=== PATIENT | female | born 1975 | race American Indian/Alaskan Native ===

== ENCOUNTER 2020-07-17 04:54 | Emergency (ER) | payer BC ==
[2020-07-17 05:13] VITALS: BP 152/113
--- NOTE | 2020-07-17 09:03 | Emergency Department Report ---
ED Fall HPI - General Chief Complaint: Fall Stated Complaint: rt leg pains Time Seen by Provider: 07/17/20 08:22 Source: patient, EMS Mode of arrival: Ambulatory - History of Present Illness Initial Comments: There is a pleasant 45-year-old female presents the emergency department for evaluation after a ground-level fall today. Patient reports she was walking in the parking lot of her job when she slipped and fell while was raining. She hit the left side of her face, left side of her chest, left hip and left knee. She reports the pain is aggravated with weightbearing. She does report she did lose consciousness for a brief second. She sustained an abrasion to the left side of her cheek. Her tetanus is up-to-date. - Related Data Home Medications Medication Instructions Recorded Confirmed Last Taken AtorvaSTATin [Lipitor] 20 mg PO DAILY 04/13/17 04/13/17 04/12/17 Ferrous Sulfate [Feosol 325 MG tab] 325 mg PO BID 04/13/17 04/13/17 04/12/17 Gabapentin 300 mg PO Q8HR 04/13/17 04/13/17 04/12/17 Insulin Glargine,Hum.rec.anlog 80 units SQ HS 04/13/17 04/13/17 04/11/17 [Lantus Solostar] glipiZIDE [Glucotrol] 10 mg PO BID 04/13/17 04/13/17 04/12/17 Previous Rx's Medication Instructions Recorded Last Taken Type Losartan [Cozaar] 50 mg PO BID #60 tablet 04/15/17 Unknown Rx Moxifloxacin 0.5% [Vigamox] 1 drops OU Q8HR 7 Days bottle 04/15/17 Unknown Rx Allergies Allergy/AdvReac Type Severity Reaction Status Date / Time No Known Allergies Allergy Verified 04/13/17 07:32 ED Review of Systems ROS: Stated complaint: rt leg pains Other details as noted in HPI Comment: All other systems reviewed and negative Constitutional: denies: chills, fever Eyes: denies: eye pain, eye discharge, vision change ENT: denies: ear pain, throat pain Respiratory: denies: cough, shortness of breath, wheezing Cardiovascular: denies: chest pain, palpitations Endocrine: no symptoms reported Gastrointestinal: denies: abdominal pain, nausea, diarrhea Genitourinary: denies: urgency, dysuria, discharge Musculoskeletal: as per HPI, back pain, arthralgia. denies: joint swelling Skin: denies: rash, lesions Neurological: as per HPI, headache. denies: weakness, paresthesias Psychiatric: denies: anxiety, depression Hematological/Lymphatic: denies: easy bleeding, easy bruising ED Past Medical Hx - Past Medical History Previous Medical History?: Yes Hx Hypertension: Yes Hx CVA: Yes Hx Diabetes: Yes Additional medical history: high cholesterol. anemia. neuropathy - Surgical History Past Surgical History?: Yes Additional Surgical History: x2. tubal ligation - Social History Smoking Status: Never Smoker Substance Use Type: None - Medications Home Medications: Home Medications Medication Instructions Recorded Confirmed Last Taken Type AtorvaSTATin [Lipitor] 20 mg PO DAILY 04/13/17 04/13/17 04/12/17 History Ferrous Sulfate [Feosol 325 MG tab] 325 mg PO BID 04/13/17 04/13/17 04/12/17 History Gabapentin 300 mg PO Q8HR 04/13/17 04/13/17 04/12/17 History Insulin Glargine,Hum.rec.anlog 80 units SQ HS 04/13/17 04/13/17 04/11/17 History [Lantus Solostar] glipiZIDE [Glucotrol] 10 mg PO BID 04/13/17 04/13/17 04/12/17 History Losartan [Cozaar] 50 mg PO BID #60 tablet 04/15/17 Unknown Rx Moxifloxacin 0.5% [Vigamox] 1 drops OU Q8HR 7 Days bottle 04/15/17 Unknown Rx ED Physical Exam - General Limitations: No Limitations General appearance: alert, in no apparent distress - Head Head exam: Present: normocephalic, other (There is an abrasion over the left zygomatic arch, with mild tenderness palpation, negative hudson sign, negative raccoon eyes, no CSF otorrhea or rhinorrhea. No hematoma or skull depressions.) - Eye Eye exam: Present: normal appearance, PERRL Pupils: Present: normal accommodation - ENT ENT exam: Present: normal exam, normal orophraynx, mucous membranes moist - Neck Neck exam: Present: normal inspection, full ROM. Absent: tenderness (No midline tenderness of cervical spine, normal active range of motion without pain) - Respiratory Respiratory exam: Present: normal lung sounds bilaterally, chest wall tenderness (Tenderness to the left upper chest wall, no deformity, no ecchymosis). Absent: respiratory distress, wheezes, rales, rhonchi, stridor - Cardiovascular Cardiovascular Exam: Present: regular rate, normal rhythm, normal heart sounds. Absent: systolic murmur, diastolic murmur, rubs, gallop - GI/Abdominal GI/Abdominal exam: Present: soft, normal bowel sounds. Absent: distended, tenderness, guarding, rebound, rigid - Extremities Exam Extremities exam: Present: normal inspection, full ROM, tenderness (Tenderness to palpation to the left proximal hip, pelvis is stable, tenderness palpation to the left knee), normal capillary refill. Absent: calf tenderness - Back Exam Back exam: Present: normal inspection, tenderness (Tenderness palpation of the lumbar spine and thoracic spine.), paraspinal tenderness, vertebral tenderness. Absent: full ROM, CVA tenderness (R), CVA tenderness (L) - Neurological Exam Neurological exam: Present: alert, oriented X3, CN II-XII intact, normal gait - Psychiatric Psychiatric exam: Present: normal affect, normal mood - Skin Skin exam: Present: warm, dry, intact, normal color. Absent: rash ED Course Vital Signs 07/17/20 05:01 Temperature 97.9 F Pulse Rate 94 H Respiratory 17 Rate Blood Pressure 152/113 O2 Sat by Pulse 100 Oximetry ED Medical Decision Making - Radiology Data Radiology results: report reviewed X-ray of the left knee, thoracic spine, lumbar spine, pelvis, chest and CT of the head all returned unremarkable with no acute findings per radiology. - Medical Decision Making Patient nontoxic in no acute distress. Vital signs are stable. She is moving all her extremities well. There is no bruising, erythema or edema. X-rays were ordered of the areas of pain and were fortunately negative. CT of the head was ordered due to her reported loss of consciousness and was fortunately negative. She was given concussion return precautions for any changing or worsening symptoms. She is up-to-date on her tetanus and a small abrasion on her left side of her face did not require any closure. She was instructed to return to the emerge part immediately felt any change or worsening symptoms. She verbalized understanding the diagnosis, treatment plan and follow-up instructions and all of her questions were answered. - Differential Diagnosis Fracture, strain, sprain Critical care attestation.: If time is entered above; I have spent that time in minutes in the direct care of this critically ill patient, excluding procedure time. ED Disposition Clinical Impression: Contusion of face Qualifiers: Encounter type: initial encounter Qualified Code(s): S00.83XA - Contusion of other part of head, initial encounter Contusion of left knee Qualifiers: Encounter type: initial encounter Qualified Code(s): S80.02XA - Contusion of left knee, initial encounter Contusion of left hip Qualifiers: Encounter type: initial encounter Qualified Code(s): S70.02XA - Contusion of left hip, initial encounter Chest wall contusion Qualifiers: Encounter type: initial encounter Laterality: left Qualified Code(s): S20.212A - Contusion of left front wall of thorax, initial encounter Acute thoracic myofascial strain Qualifiers: Encounter type: initial encounter Qualified Code(s): S29.019A - Strain of muscle and tendon of unspecified wall of thorax, initial encounter Acute lumbar myofascial strain Qualifiers: Encounter type: initial encounter Qualified Code(s): S39.012A - Strain of muscle, fascia and tendon of lower back, initial encounter Closed head injury Qualifiers: Encounter type: initial encounter Qualified Code(s): S09.90XA - Unspecified injury of head, initial encounter Disposition: DC-01 TO HOME OR SELFCARE Is pt being admited?: No Condition: Stable Referrals: PRIMARY MD LUIS [Primary Care Provider] - 3-5 Days TALAT SIGALA MD [Staff Physician] - 3-5 Days Time of Disposition: 14:07
--- NOTE | 2020-07-17 09:26 | Cat Scan Report ---
CT head/brain wo con INDICATION / CLINICAL INFORMATION: 45 years Female; pain, fall. TECHNIQUE: Routine CT head without contrast. All CT scans at this location are performed using CT dos e reduction for ALARA by means of automated exposure control. COMPARISON: None. FINDINGS: BRAIN / INTRACRANIAL CONTENTS: The brain appears to demonstrate appropriate attenuation. The ventricu lar system is within normal limits in size and configuration. There is no CT evidence of acute intrac ranial hemorrhage or significant mass effect. ORBITS: No significant abnormality of visualized orbits. SINUSES / MASTOIDS: No significant abnormality in the visualized paranasal sinuses or mastoid air jose ramon ls. CRANIOCERVICAL JUNCTION: No significant abnormality. ADDITIONAL FINDINGS: None. IMPRESSION: 1. There is no CT evidence of acute intracranial process. Signer Name: Can Tavarez MD Signed: 07/17/2020 9:22 AM Workstation Name: [id number]
--- NOTE | 2020-07-17 09:37 | XRay Report ---
LEFT KNEE 2 VIEWS INDICATION: Left knee pain after fall. COMPARISON: No relevant prior imaging study available. FINDINGS: No acute fracture, dislocation, or joint effusion. IMPRESSION: 1. No acute findings. THORACIC SPINE AP AND LATERAL VIEWS INDICATION: Back pain after fall. COMPARISON: No relevant prior imaging study available. FINDINGS: No acute fracture or subluxation is seen. No significant discogenic degenerative changes. IMPRESSION: 1. No acute findings. Signer Name: Marlon Nation MD Signed: 07/17/2020 9:33 AM Workstation Name: [id number]
--- NOTE | 2020-07-17 09:40 | XRay Report ---
LUMBAR SPINE AP AND LATERAL VIEWS INDICATION: Low back pain after fall. COMPARISON: No relevant prior imaging study available. FINDINGS: Acute fracture or subluxation. There is no SI joint diastases. IMPRESSION: 1. No acute findings. AP PELVIS INDICATION: Pelvic pain after fall. COMPARISON: No relevant prior imaging study available. FINDINGS: No acute, displaced fracture or dislocation is seen. Constipation is noted. IMPRESSION: 1. No acute findings. CHEST PA AND LATERAL VIEWS INDICATION: pain, fall. COMPARISON: None. FINDINGS: Support devices: None. Heart: Within normal limits. Lungs/Pleura: No acute pulmonary or pleural findings. IMPRESSION: 1. No acute findings. Signer Name: Marlon Nation MD Signed: 07/17/2020 9:36 AM Workstation Name: [id number]
== END 2020-07-17 14:05 | disposition home or self-care (01) ==
LOC: ED 04:54
DX: S09.90XA Unspecified injury of head, initial encounter (principal); S39.012A Strain of muscle, fascia and tendon of lower back, initial encounter; S29.012A Strain of muscle and tendon of back wall of thorax, initial encounter; S20.219A Contusion of unspecified front wall of thorax, initial encounter; S70.02XA Contusion of left hip, initial encounter; S80.02XA Contusion of left knee, initial encounter; S00.83XA Contusion of other part of head, initial encounter; I10 Essential (primary) hypertension; E11.9 Type 2 diabetes mellitus without complications; Z86.73 Personal history of transient ischemic attack (TIA), and cerebral infarction without residual deficits; Z98.51 Tubal ligation status; Z98.890 Other specified postprocedural states; Z79.4 Long term (current) use of insulin; Z79.899 Other long term (current) drug therapy; W01.0XXA Fall on same level from slipping, tripping and stumbling without subsequent striking against object, initial encounter; Y93.89 Activity, other specified; Y92.481 Parking lot as the place of occurrence of the external cause; Y99.8 Other external cause status
CPT/HCPCS: 70450; 71046; 72070; 72100; 72170; 82962

== ENCOUNTER 2020-07-29 16:02 | Emergency (ER) | payer BC ==
--- NOTE | 2020-07-29 18:07 | Event Note ---
ED Screening Note ED Screening Note: 45-year-old female past medical history of hypertension diabetes resents emergency department complaining of elevated blood sugar being over 500 on yesterday and was advised by her primary care doctor to come to the emergency department for further evaluation and treatment today. She also reports having some issues with hypertension and and left lower back pain of an unknown etiology she reports no urinary symptoms. She reports no chest pain or palpitations. No hemoptysis no hematemesis no hematochezia. This initial assessment/diagnostic orders/clinical plan/treatment(s) is/are subject to change based on patients health status, clinical progression and re- assessment by fellow clinical providers in the ED. Further treatment and workup at subsequent clinical providers discretion. Patient/guardian urged not to elope from the ED as their condition may be serious if not clinically assessed and m anaged. Initial orders include: Urination and labs she may need treatment for DKA or hyperosmolar nonketotic state
[2020-07-29 18:40] LABS: Basophils % (Auto) 1.1 % (0.0-1.8); Eosinophils # (Auto) 0.1 K/mm3 (0.0-0.4); Lymphocytes # (Auto) 1.1 K/mm3 (1.2-5.4); Lymphocytes % (Auto) 25.9 % (13.4-35.0); Mean Corpuscular HGB Conc 30 % (30-34); Mean Corpuscular Volume 74 fl (79-97); Monocytes # (Auto) 0.2 K/mm3 (0.0-0.8); Monocytes % (Auto) 5.2 % (0.0-7.3); Platelet Count 281 K/mm3 (140-440); Red Blood Count 4.38 M/mm3 (3.65-5.03); Red Cell Distribution Width 16.6 % (13.2-15.2)
[2020-07-29 18:41] LABS: Hematocrit 32.2 % (30.3-42.9); Hemoglobin 9.5 gm/dl (10.1-14.3)
[2020-07-29] MEDS ORDERED: SODIUM CHLORIDE 0.9% 1000 ML 1,000 ML IV ONE ×2 (18:45→19:23)
[2020-07-29 18:59] LABS: Alanine Aminotransferase 20 units/L (7-56); Albumin 3.4 g/dL (3.9-5); BUN/Creatinine Ratio 17; Blood Urea Nitrogen 38 mg/dL (7-17); Calcium 8.4 mg/dL (8.4-10.2); Hemolysis Index 13
--- NOTE | 2020-07-29 19:17 | Emergency Department Report ---
ED General Adult HPI - General Chief complaint: Hyperglycemia Stated complaint: HIGH BLOOD PRESSURE Time Seen by Provider: 07/29/20 18:44 Source: patient Mode of arrival: Ambulatory Limitations: No Limitations - History of Present Illness Initial comments: 45-year-old female past medical history of hypertension diabetes resents emergency department complaining of elevated blood sugar being over 500 on yesterday and was advised by her primary care doctor to come to the emergency department for further evaluation and treatment today. She also reports having some issues with hypertension and and left lower back pain of an unknown etiology she reports no urinary symptoms. She reports no chest pain or palpitations. No hemoptysis no hematemesis no hematochezia. Severity scale (0 -10): 0 - Related Data Home Medications Medication Instructions Recorded Confirmed Last Taken AtorvaSTATin [Lipitor] 20 mg PO DAILY 04/13/17 04/13/17 04/12/17 Ferrous Sulfate [Feosol 325 MG tab] 325 mg PO BID 04/13/17 04/13/17 04/12/17 Gabapentin 300 mg PO Q8HR 04/13/17 04/13/17 04/12/17 Insulin Glargine,Hum.rec.anlog 80 units SQ HS 04/13/17 04/13/17 04/11/17 [Lantus Solostar] glipiZIDE [Glucotrol] 10 mg PO BID 04/13/17 04/13/17 04/12/17 Previous Rx's Medication Instructions Recorded Last Taken Type Losartan [Cozaar] 50 mg PO BID #60 tablet 04/15/17 Unknown Rx Moxifloxacin 0.5% [Vigamox] 1 drops OU Q8HR 7 Days bottle 04/15/17 Unknown Rx Allergies Allergy/AdvReac Type Severity Reaction Status Date / Time No Known Allergies Allergy Verified 04/13/17 07:32 ED Review of Systems ROS: Stated complaint: HIGH BLOOD PRESSURE Other details as noted in HPI Constitutional: denies: chills, fever Eyes: denies: eye pain, eye discharge, vision change ENT: denies: ear pain, throat pain Respiratory: denies: cough, shortness of breath, wheezing Cardiovascular: denies: chest pain, palpitations Endocrine: no symptoms reported Gastrointestinal: denies: abdominal pain, nausea, diarrhea Genitourinary: denies: urgency, dysuria, discharge Musculoskeletal: denies: back pain, joint swelling, arthralgia Skin: denies: rash, lesions Neurological: denies: headache, weakness, paresthesias Psychiatric: denies: anxiety, depression Hematological/Lymphatic: denies: easy bleeding, easy bruising ED Past Medical Hx - Past Medical History Previous Medical History?: Yes Hx Hypertension: Yes Hx CVA: Yes Hx Diabetes: Yes Additional medical history: high cholesterol. anemia. neuropathy - Surgical History Past Surgical History?: Yes Additional Surgical History: x2. tubal ligation - Social History Smoking Status: Never Smoker Substance Use Type: None - Medications Home Medications: Home Medications Medication Instructions Recorded Confirmed Last Taken Type AtorvaSTATin [Lipitor] 20 mg PO DAILY 04/13/17 04/13/17 04/12/17 History Ferrous Sulfate [Feosol 325 MG tab] 325 mg PO BID 04/13/17 04/13/17 04/12/17 History Gabapentin 300 mg PO Q8HR 04/13/17 04/13/17 04/12/17 History Insulin Glargine,Hum.rec.anlog 80 units SQ HS 04/13/17 04/13/17 04/11/17 History [Lantus Solostar] glipiZIDE [Glucotrol] 10 mg PO BID 04/13/17 04/13/17 04/12/17 History Losartan [Cozaar] 50 mg PO BID #60 tablet 04/15/17 Unknown Rx Moxifloxacin 0.5% [Vigamox] 1 drops OU Q8HR 7 Days bottle 04/15/17 Unknown Rx ED Physical Exam - General Limitations: No Limitations General appearance: alert, in no apparent distress - Head Head exam: Present: atraumatic, normocephalic - Eye Eye exam: Present: normal appearance, EOMI Pupils: Present: normal accommodation - ENT ENT exam: Present: mucous membranes moist - Neck Neck exam: Present: normal inspection, full ROM. Absent: tenderness - Respiratory Respiratory exam: Present: normal lung sounds bilaterally. Absent: respiratory distress, wheezes, stridor, chest wall tenderness - Cardiovascular Cardiovascular Exam: Present: regular rate, normal rhythm, normal heart sounds. Absent: systolic murmur, diastolic murmur, rubs, gallop - GI/Abdominal GI/Abdominal exam: Present: soft, normal bowel sounds. Absent: distended, tenderness, guarding, rebound, rigid, bruit, hernia - Rectal Rectal exam: Present: deferred - Extremities Exam Extremities exam: Present: normal inspection, full ROM, normal capillary refill - Back Exam Back exam: Present: normal inspection, full ROM. Absent: tenderness, CVA tenderness (R), CVA tenderness (L), rash noted - Neurological Exam Neurological exam: Present: alert, oriented X3, CN II-XII intact - Psychiatric Psychiatric exam: Present: normal affect, normal mood - Skin Skin exam: Present: warm, dry, intact, normal color. Absent: rash ED Course Vital Signs 07/29/20 16:24 Temperature 98 F Pulse Rate 94 H Respiratory 18 Rate Blood Pressure 182/100 [Right] O2 Sat by Pulse 97 Oximetry ED Medical Decision Making - Lab Data Result diagrams: 07/29/20 18:13 07/29/20 21:32 Labs 07/29/20 07/29/20 07/29/20 16:54 18:13 18:13 WBC 4.1 L RBC 4.38 Hgb 9.5 L Hct 32.2 MCV 74 L MCH 22 L MCHC 30 RDW 16.6 H Plt Count 281 Lymph % (Auto) 25.9 Mower % (Auto) 5.2 Eos % (Auto) 2.0 Baso % (Auto) 1.1 Lymph # (Auto) 1.1 L Mower # (Auto) 0.2 Eos # (Auto) 0.1 Baso # (Auto) 0.0 Seg Neutrophils % 65.8 Seg Neutrophils # 2.7 VBG pH Sodium 133 L Potassium 4.6 Chloride 98.4 Carbon Dioxide 24 Anion Gap 15 BUN 38 H Creatinine 2.2 H Estimated GFR 29 BUN/Creatinine Ratio 17 Glucose 792 H* POC Glucose > 500 H Calcium 8.4 Total Bilirubin < 0.20 AST 20 ALT 20 Alkaline Phosphatase 93 Total Protein 6.7 Albumin 3.4 L Albumin/Globulin Ratio 1.0 Urine Color Urine Turbidity Urine pH Ur Specific [place] Urine Protein Urine Glucose (UA) Urine Ketones Urine Blood Urine Nitrite Urine Bilirubin Urine Urobilinogen Ur Leukocyte Esterase Urine WBC (Auto) Urine RBC (Auto) U Epithel Cells (Auto) Urine Bacteria (Auto) 07/29/20 07/29/20 07/29/20 19:28 20:42 21:32 WBC RBC Hgb Hct MCV MCH MCHC RDW Plt Count Lymph % (Auto) Mower % (Auto) Eos % (Auto) Baso % (Auto) Lymph # (Auto) Mower # (Auto) Eos # (Auto) Baso # (Auto) Seg Neutrophils % Seg Neutrophils # VBG pH 7.257 L Sodium 143 D Potassium 3.4 L D Chloride 110.2 H Carbon Dioxide 24 Anion Gap 12 BUN 33 H Creatinine 2.0 H Estimated GFR 32 BUN/Creatinine Ratio 17 Glucose 146 H POC Glucose Calcium 8.0 L Total Bilirubin AST ALT Alkaline Phosphatase Total Protein Albumin Albumin/Globulin Ratio Urine Color Colorless Urine Turbidity Clear Urine pH 7.0 Ur Specific [place] 1.012 Urine Protein 100 mg/dl Urine Glucose (UA) >=500 Urine Ketones Neg Urine Blood Sm Urine Nitrite Neg Urine Bilirubin Neg Urine Urobilinogen < 2.0 Ur Leukocyte Esterase Neg Urine WBC (Auto) 3.0 Urine RBC (Auto) 4.0 U Epithel Cells (Auto) 2.0 Urine Bacteria (Auto) 1+ - Medical Decision Making BG noted a 146 mg /dl after medications given in ed, there is no fever or chills, no n/v, no urinary frequency urgency or dysuria, no other polys, pt is a/o x3 ambulatory with steady gait and tolerating po intake with symptoms, pt will be dc'd to home in stable condition at this time, 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 Critical care attestation.: If time is entered above; I have spent that time in minutes in the direct care of this critically ill patient, excluding procedure time. ED Disposition Clinical Impression: Hyperglycemia Disposition: DC-01 TO HOME OR SELFCARE Is pt being admited?: No Does the pt Need Aspirin: No Condition: Stable Referrals: JAYLON MALDONADO MD [Staff Physician] - 3-5 Days Forms: Work/School Release Form(ED) Time of Disposition: 22:27
[2020-07-29] MEDS ORDERED: INSULIN REGULAR, HUMAN 100 UNIT/ML 3ML VIAL IV ONE (19:41)
[2020-07-29] MEDS ORDERED: INSULIN REGULAR, HUMAN 100 UNITS/1 ML ONE (20:30)
[2020-07-29 20:58] LABS: Bacteria,Urine 1+ /HPF (Negative); Bilirubin,Urine NEG (Negative); Blood,Urine SM (Negative); Color,Urine Colorless (Yellow); Urobilinogen,Urine < 2.0 mg/dL (<2.0)
[2020-07-29 22:55] VITALS: BP 156/101
== END 2020-07-29 22:55 | disposition home or self-care (01) ==
LOC: ED 16:02
DX: E11.65 Type 2 diabetes mellitus with hyperglycemia (principal); I10 Essential (primary) hypertension; Z98.51 Tubal ligation status; Z79.4 Long term (current) use of insulin; Z79.899 Other long term (current) drug therapy
CPT/HCPCS: 36415; 80048; 80053; 81001; 82232; 82805; 82962; 85025; 96361; 96374; 99283; J7030; J1815

== ENCOUNTER 2021-04-20 11:42 | Inpatient (IN) | payer BC ==
[2021-04-20 14:36] LABS: Basophils % (Auto) 0.6 % (0.0-1.8); Eosinophils % (Auto) 0.1 % (0.0-4.3); Hematocrit 32.1 % (30.3-42.9); Hemoglobin 9.8 gm/dl (10.1-14.3); Lymphocytes # (Auto) 0.6 K/mm3 (1.2-5.4); Lymphocytes % (Auto) 13.5 % (13.4-35.0); Mean Corpuscular HGB Conc 30 % (30-34); Mean Corpuscular Volume 72 fl (79-97); Monocytes # (Auto) 0.3 K/mm3 (0.0-0.8); Monocytes % (Auto) 6.8 % (0.0-7.3); Platelet Count 171 K/mm3 (140-440); Red Blood Count 4.44 M/mm3 (3.65-5.03); Red Cell Distribution Width 15.2 % (13.2-15.2)
[2021-04-20 15:17] LABS: Alanine Aminotransferase 37 units/L (7-56); Albumin 3.3 g/dL (3.9-5); BUN/Creatinine Ratio 11; Blood Urea Nitrogen 41 mg/dL (7-17); Calcium 8.7 mg/dL (8.4-10.2); Hemolysis Index 1
--- NOTE | 2021-04-20 17:02 | Emergency Department Report ---
Blank Doc - Documentation Documentation: Upon reviewing patient's labs glucose of 582 noted with a venous pH of 7.2. No tified charge nurse, [place], of results and patient needing bed [id number]
[2021-04-21] MEDS ORDERED: LACTATED RINGERS 1,000 ML IV ONE (08:32)
[2021-04-21] MEDS ORDERED: INSULIN REGULAR, HUMAN 100 UNITS/1 ML IV ONE (08:32)
[2021-04-21] MEDS ORDERED: ACETAMINOPHEN 325 MG TAB PO ONE (08:33)
--- NOTE | 2021-04-21 08:34 | Emergency Department Report ---
HPI - General Chief Complaint: Hyperglycemia Time Seen by Provider: 04/21/21 07:58 - HPI HPI: 46-year-old female with history of hypertension, anemia, DM two, and CKD presents complaining of low back pain for the past 6 days. The patient states that her pain started on Tuesday. It was gradual in onset. She describes pain right in the center of her low back which is nonradiating and constant. She denies any recent trauma. She has also noticed that her blood sugars have been in the 500s for the past few days. She does note that she is had decreased urination over the past few days as well. He is unable to explain why she has not seen a doctor and had adjustment to her medications with her blood glucose being so high. She denies any fever/chills, headache, vision change, chest pain, shortness of breath, abdominal pain, nausea/vomiting, cough, saddle anesthesia, bowel/bladder incontinence or retention, focal weakness, sensory changes, or any other complaints. The patient is vaccinated against COVID-19. ED Past Medical Hx - Past Medical History Previous Medical History?: Yes Hx Hypertension: Yes Hx CVA: Yes Hx Diabetes: Yes Hx Renal Disease: Yes Additional medical history: high cholesterol. anemia. CKD - Surgical History Past Surgical History?: Yes Additional Surgical History: x2. tubal ligation - Social History Smoking Status: Never Smoker Substance Use Type: None - Medications Home Medications: Home Medications Medication Instructions Recorded Confirmed Last Taken Type AtorvaSTATin [Lipitor] 20 mg PO DAILY 04/13/17 04/21/21 1 Day Ago History ~04/20/21 Gabapentin 300 mg PO Q8HR 04/13/17 04/21/21 1 Day Ago History ~04/20/21 Insulin Glargine,Hum.rec.anlog 80 units SQ HS 04/13/17 04/21/21 2 Days Ago History [Lantus Solostar] ~04/19/21 glipiZIDE [Glucotrol] 10 mg PO BID 04/13/17 04/21/21 1 Day Ago History ~04/20/21 Losartan [Cozaar] 50 mg PO BID #60 tablet 04/15/17 04/21/21 1 Day Ago Rx ~04/20/21 ED Review of Systems ROS: Stated complaint: BACK PAINS Other details as noted in HPI Constitutional: denies: chills, fever Eyes: denies: eye pain, vision change ENT: denies: throat pain, congestion Respiratory: denies: cough, shortness of breath Cardiovascular: denies: chest pain, palpitations, syncope Gastrointestinal: denies: abdominal pain, nausea, vomiting, diarrhea, constipation Genitourinary: other (decreased urination). denies: dysuria, frequency Musculoskeletal: back pain. denies: arthralgia, myalgia Skin: denies: rash, lesions Neurological: denies: headache, weakness, numbness, paresthesias, abnormal gait, vertigo Physical Exam - Physical Exam Vital Signs: Vital Signs 04/20/21 04/20/21 04/20/21 14:08 15:50 15:51 Temperature 98.2 F Pulse Rate 84 83 Respiratory 18 16 Rate Blood Pressure 157/98 Blood Pressure 163/107 [Right] O2 Sat by Pulse 99 97 Oximetry Physical Exam: GENERAL: Well developed and well nourished. No acute distress HEAD: Normocephalic. No obvious signs of trauma. ENT: Dry mucous membranes. EYES: Extraocular movements are intact. Pupils are equal round and reactive to light bilaterally NECK: Supple. Full ROM is intact. Trachea is midline. LUNGS: Nonlabored breathing. Equal chest rise bilaterally. Clear to auscultation bilaterally. CARDIOVASCULAR: Regular rate and rhythm. No murmurs or rubs. VASCULAR: Cap refill < 2 seconds ABDOMEN: Abdomen is soft and nondistended. There is no significant tenderness, guarding or rebound. SKIN: Skin is warm and dry NEURO: Patient is awake, alert, and oriented. cycle counter II-XII grossly intact. No focal deficits. Normal motor and sensory exam throughout. Normal speech. MUSCULOSKELETAL: No obvious deformities. No significant tenderness. Normal ROM throughout. BACK/SPINE: No midline tenderness or step-offs of the C/T spine. There is midline tenderness noted to the mid lower lumbar spine without any palpable step-offs. No costovertebral angle tenderness. ED Course Vital Signs 04/20/21 04/20/21 04/20/21 14:08 15:50 15:51 Temperature 98.2 F Pulse Rate 84 83 Respiratory 18 16 Rate Blood Pressure 157/98 Blood Pressure 163/107 [Right] O2 Sat by Pulse 99 97 Oximetry ED Medical Decision Making - Lab Data Result diagrams: 04/20/21 14:23 04/20/21 14:23 Lab Results 04/20/21 04/20/21 04/20/21 Range/Units 14:11 14:23 14:23 WBC 4.5 (4.5-11.0) K/mm3 RBC 4.44 (3.65-5.03) M/mm3 Hgb 9.8 L (10.1-14.3) gm/dl Hct 32.1 (30.3-42.9) % MCV 72 L (79-97) fl MCH 22 L (28-32) pg MCHC 30 (30-34) % RDW 15.2 (13.2-15.2) % Plt Count 171 (140-440) K/mm3 Lymph % (Auto) 13.5 (13.4-35.0) % [place] % (Auto) 6.8 (0.0-7.3) % Eos % (Auto) 0.1 (0.0-4.3) % Baso % (Auto) 0.6 (0.0-1.8) % Lymph # (Auto) 0.6 L (1.2-5.4) K/mm3 [place] # (Auto) 0.3 (0.0-0.8) K/mm3 Eos # (Auto) 0.0 (0.0-0.4) K/mm3 Baso # (Auto) 0.0 (0.0-0.1) K/mm3 Seg Neutrophils % 79.0 H (40.0-70.0) % Seg Neutrophils # 3.5 (1.8-7.7) K/mm3 VBG pH (7.320-7.420) Sodium 131 L (137-145) mmol/L Potassium 4.4 (3.6-5.0) mmol/L Chloride 96.2 L (98-107) mmol/L Carbon Dioxide 24 (22-30) mmol/L Anion Gap 15 mmol/L BUN 41 H (7-17) mg/dL Creatinine 3.6 H (0.6-1.2) mg/dL Estimated GFR 16 ml/min BUN/Creatinine Ratio 11 % Glucose 586 H* (65-100) mg/dL POC Glucose 571 H (70-105) mg/dL Calcium 8.7 (8.4-10.2) mg/dL Phosphorus 4.00 (2.5-4.5) mg/dL Magnesium 1.90 (1.7-2.3) mg/dL Total Bilirubin < 0.20 (0.1-1.2) mg/dL AST 34 (5-40) units/L ALT 37 (7-56) units/L Alkaline Phosphatase 76 (35-129) units/L Total Protein 6.2 L (6.3-8.2) g/dL Albumin 3.3 L (3.9-5) g/dL Albumin/Globulin Ratio 1.1 % HCG, Qual (Negative) Urine Color (Yellow) Urine Turbidity (Clear) Urine pH (5.0-7.0) Ur Specific [place] (1.003-1.030) Urine Protein (Negative) mg/dL Urine Glucose (UA) (Negative) mg/dL Urine Ketones (Negative) mg/dL Urine Blood (Negative) Urine Nitrite (Negative) Ur Reducing Substances Urine Bilirubin (Negative) Urine Ictotest Urine Urobilinogen (<2.0) mg/dL Ur Leukocyte Esterase (Negative) Urine WBC (Auto) (0.0-6.0) /HPF Urine RBC (Auto) (0.0-6.0) /HPF U Epithel Cells (Auto) (0-13.0) /HPF Urine Bacteria (Auto) (Negative) /HPF Urine Mucus /HPF 04/20/21 04/21/21 04/21/21 Range/Units 14:23 01:55 08:03 WBC (4.5-11.0) K/mm3 RBC (3.65-5.03) M/mm3 Hgb (10.1-14.3) gm/dl Hct (30.3-42.9) % MCV (79-97) fl MCH (28-32) pg MCHC (30-34) % RDW (13.2-15.2) % Plt Count (140-440) K/mm3 Lymph % (Auto) (13.4-35.0) % [place] % (Auto) (0.0-7.3) % Eos % (Auto) (0.0-4.3) % Baso % (Auto) (0.0-1.8) % Lymph # (Auto) (1.2-5.4) K/mm3 [place] # (Auto) (0.0-0.8) K/mm3 Eos # (Auto) (0.0-0.4) K/mm3 Baso # (Auto) (0.0-0.1) K/mm3 Seg Neutrophils % (40.0-70.0) % Seg Neutrophils # (1.8-7.7) K/mm3 VBG pH 7.267 L (7.320-7.420) Sodium (137-145) mmol/L Potassium (3.6-5.0) mmol/L Chloride (98-107) mmol/L Carbon Dioxide (22-30) mmol/L Anion Gap mmol/L BUN (7-17) mg/dL Creatinine (0.6-1.2) mg/dL Estimated GFR ml/min BUN/Creatinine Ratio % Glucose (65-100) mg/dL POC Glucose 303 H 406 H (70-105) mg/dL Calcium (8.4-10.2) mg/dL Phosphorus (2.5-4.5) mg/dL Magnesium (1.7-2.3) mg/dL Total Bilirubin (0.1-1.2) mg/dL AST (5-40) units/L ALT (7-56) units/L Alkaline Phosphatase (35-129) units/L Total Protein (6.3-8.2) g/dL Albumin (3.9-5) g/dL Albumin/Globulin Ratio % HCG, Qual (Negative) Urine Color (Yellow) Urine Turbidity (Clear) Urine pH (5.0-7.0) Ur Specific [place] (1.003-1.030) Urine Protein (Negative) mg/dL Urine Glucose (UA) (Negative) mg/dL Urine Ketones (Negative) mg/dL Urine Blood (Negative) Urine Nitrite (Negative) Ur Reducing Substances Urine Bilirubin (Negative) Urine Ictotest Urine Urobilinogen (<2.0) mg/dL Ur Leukocyte Esterase (Negative) Urine WBC (Auto) (0.0-6.0) /HPF Urine RBC (Auto) (0.0-6.0) /HPF U Epithel Cells (Auto) (0-13.0) /HPF Urine Bacteria (Auto) (Negative) /HPF Urine Mucus /HPF 04/21/21 04/21/21 Range/Units 08:42 09:41 WBC (4.5-11.0) K/mm3 RBC (3.65-5.03) M/mm3 Hgb (10.1-14.3) gm/dl Hct (30.3-42.9) % MCV (79-97) fl MCH (28-32) pg MCHC (30-34) % RDW (13.2-15.2) % Plt Count (140-440) K/mm3 Lymph % (Auto) (13.4-35.0) % [place] % (Auto) (0.0-7.3) % Eos % (Auto) (0.0-4.3) % Baso % (Auto) (0.0-1.8) % Lymph # (Auto) (1.2-5.4) K/mm3 [place] # (Auto) (0.0-0.8) K/mm3 Eos # (Auto) (0.0-0.4) K/mm3 Baso # (Auto) (0.0-0.1) K/mm3 Seg Neutrophils % (40.0-70.0) % Seg Neutrophils # (1.8-7.7) K/mm3 VBG pH (7.320-7.420) Sodium (137-145) mmol/L Potassium (3.6-5.0) mmol/L Chloride (98-107) mmol/L Carbon Dioxide (22-30) mmol/L Anion Gap mmol/L BUN (7-17) mg/dL Creatinine (0.6-1.2) mg/dL Estimated GFR ml/min BUN/Creatinine Ratio % Glucose (65-100) mg/dL POC Glucose (70-105) mg/dL Calcium (8.4-10.2) mg/dL Phosphorus (2.5-4.5) mg/dL Magnesium (1.7-2.3) mg/dL Total Bilirubin (0.1-1.2) mg/dL AST (5-40) units/L ALT (7-56) units/L Alkaline Phosphatase (35-129) units/L Total Protein (6.3-8.2) g/dL Albumin (3.9-5) g/dL Albumin/Globulin Ratio % HCG, Qual Negative (Negative) Urine Color Straw (Yellow) Urine Turbidity Clear (Clear) Urine pH 6.0 (5.0-7.0) Ur Specific [place] 1.014 (1.003-1.030) Urine Protein >500 (Negative) mg/dL Urine Glucose (UA) >=500 (Negative) mg/dL Urine Ketones Tr (Negative) mg/dL Urine Blood Sm (Negative) Urine Nitrite Neg (Negative) Ur Reducing Substances Not Reportable Urine Bilirubin Neg (Negative) Urine Ictotest Not Reportable Urine Urobilinogen < 2.0 (<2.0) mg/dL Ur Leukocyte Esterase Neg (Negative) Urine WBC (Auto) 2.0 (0.0-6.0) /HPF Urine RBC (Auto) 3.0 (0.0-6.0) /HPF U Epithel Cells (Auto) 3.0 (0-13.0) /HPF Urine Bacteria (Auto) 1+ (Negative) /HPF Urine Mucus Few /HPF Lab Results 04/20/21 04/20/21 04/20/21 Range/Units 14:11 14:23 14:23 WBC 4.5 (4.5-11.0) K/mm3 RBC 4.44 (3.65-5.03) M/mm3 Hgb 9.8 L (10.1-14.3) gm/dl Hct 32.1 (30.3-42.9) % MCV 72 L (79-97) fl MCH 22 L (28-32) pg MCHC 30 (30-34) % RDW 15.2 (13.2-15.2) % Plt Count 171 (140-440) K/mm3 Lymph % (Auto) 13.5 (13.4-35.0) % [place] % (Auto) 6.8 (0.0-7.3) % Eos % (Auto) 0.1 (0.0-4.3) % Baso % (Auto) 0.6 (0.0-1.8) % Lymph # (Auto) 0.6 L (1.2-5.4) K/mm3 [place] # (Auto) 0.3 (0.0-0.8) K/mm3 Eos # (Auto) 0.0 (0.0-0.4) K/mm3 Baso # (Auto) 0.0 (0.0-0.1) K/mm3 Seg Neutrophils % 79.0 H (40.0-70.0) % Seg Neutrophils # 3.5 (1.8-7.7) K/mm3 VBG pH (7.320-7.420) Sodium 131 L (137-145) mmol/L Potassium 4.4 (3.6-5.0) mmol/L Chloride 96.2 L (98-107) mmol/L Carbon Dioxide 24 (22-30) mmol/L Anion Gap 15 mmol/L BUN 41 H (7-17) mg/dL Creatinine 3.6 H (0.6-1.2) mg/dL Estimated GFR 16 ml/min BUN/Creatinine Ratio 11 % Glucose 586 H* (65-100) mg/dL POC Glucose 571 H (70-105) mg/dL Calcium 8.7 (8.4-10.2) mg/dL Phosphorus 4.00 (2.5-4.5) mg/dL Magnesium 1.90 (1.7-2.3) mg/dL Total Bilirubin < 0.20 (0.1-1.2) mg/dL AST 34 (5-40) units/L ALT 37 (7-56) units/L Alkaline Phosphatase 76 (35-129) units/L Total Protein 6.2 L (6.3-8.2) g/dL Albumin 3.3 L (3.9-5) g/dL Albumin/Globulin Ratio 1.1 % 04/20/21 04/21/21 04/21/21 Range/Units 04/21/21 04/21/21 Range/Units 08:42 09:41 WBC (4.5-11.0) K/mm3 RBC (3.65-5.03) M/mm3 Hgb (10.1-14.3) gm/dl Hct (30.3-42.9) % MCV (79-97) fl MCH (28-32) pg MCHC (30-34) % RDW (13.2-15.2) % Plt Count (140-440) K/mm3 Lymph % (Auto) (13.4-35.0) % [place] % (Auto) (0.0-7.3) % Eos % (Auto) (0.0-4.3) % Baso % (Auto) (0.0-1.8) % Lymph # (Auto) (1.2-5.4) K/mm3 [place] # (Auto) (0.0-0.8) K/mm3 Eos # (Auto) (0.0-0.4) K/mm3 Baso # (Auto) (0.0-0.1) K/mm3 Seg Neutrophils % (40.0-70.0) % Seg Neutrophils # (1.8-7.7) K/mm3 VBG pH (7.320-7.420) Sodium (137-145) mmol/L Potassium (3.6-5.0) mmol/L Chloride (98-107) mmol/L Carbon Dioxide (22-30) mmol/L Anion Gap mmol/L BUN (7-17) mg/dL Creatinine (0.6-1.2) mg/dL Estimated GFR ml/min BUN/Creatinine Ratio % Glucose (65-100) mg/dL POC Glucose (70-105) mg/dL Calcium (8.4-10.2) mg/dL Phosphorus (2.5-4.5) mg/dL Magnesium (1.7-2.3) mg/dL Total Bilirubin (0.1-1.2) mg/dL AST (5-40) units/L ALT (7-56) units/L Alkaline Phosphatase (35-129) units/L Total Protein (6.3-8.2) g/dL Albumin (3.9-5) g/dL Albumin/Globulin Ratio % HCG, Qual Negative (Negative) Urine Color Straw (Yellow) Urine Turbidity Clear (Clear) Urine pH 6.0 (5.0-7.0) Ur Specific [place] 1.014 (1.003-1.030) Urine Protein >500 (Negative) mg/dL Urine Glucose (UA) >=500 (Negative) mg/dL Urine Ketones Tr (Negative) mg/dL Urine Blood Sm (Negative) Urine Nitrite Neg (Negative) Ur Reducing Substances Not Reportable Urine Bilirubin Neg (Negative) Urine Ictotest Not Reportable Urine Urobilinogen < 2.0 (<2.0) mg/dL Ur Leukocyte Esterase Neg (Negative) Urine WBC (Auto) 2.0 (0.0-6.0) /HPF Urine RBC (Auto) 3.0 (0.0-6.0) /HPF U Epithel Cells (Auto) 3.0 (0-13.0) /HPF Urine Bacteria (Auto) 1+ (Negative) /HPF Urine Mucus Few /HPF - Radiology Data CT LUMBAR SPINE WITHOUT CONTRAST INDICATION: midline tend, lower back pain . TECHNIQUE: Axial imaging performed through the lower spine without the use of contrast. Sagittal and coronal reconstructed images were also reviewed. All CT scans at this location are performed using CT dose reduction for ALARA by means of automated exposure control. COMPARISON: None FINDINGS: Alignment: Spinal alignment is normal. Bones: There is no acute osseous abnormality. No significant discogenic DJD or facet arthropathy. No bone lesion. Soft tissues: There is suggestion of a mild bulging disc at L4-5. The remaining discs are unremarkable. Punctate calyceal stone in the superior left kidney is noted. The pancreas appears severely atrophic with diffuse calcifications suggesting chronic pancreatitis. IMPRESSION: Mild to moderate bulging disc at L4-5 is suspected. If further evaluation is needed, MRI lumbar spine without contrast could be obtained. No bony abnormality is detected in the lumbar spine. Punctate left renal stone. Findings consistent with chronic pancreatitis. Signer Name: Osmar Barillas Jr, MD Signed: 04/21/2021 10:05 AM Workstation Name: [id number] - Medical Decision Making 46-year-old female history of hypertension, anemia, DM two, and CKD presents complaining of mid low back pain for the past 6 days. She is also had elevated blood sugars in the 500s for the past few days. No preceding trauma or other identifiable precipitating cause. No red flag signs or symptoms to suggest acute cord injury. She is afebrile and with normal vital signs other than mildly elevated blood pressure. Physical examination reveals dry mucous memb ranes. There is midline tenderness noted to the lower lumbar spine. There is no CVA tenderness. She has a nonfocal neurologic exam. Labs were drawn in triage and there is no significant leukocytosis and mild anemia of 9.8 which is at the patient's baseline upon review of prior medical records. The patient has significant ALENA with creatinine of 3.6 and BUN of 41. The patient's last creatinine from July 2020 was 2.0. Sodium is 131. Potassium is 4.4. Glucose is extremely elevated at 586 which has improved to 406 since. There is no significant anion gap and bicarb is within normal limits. We will obtain CT of the lumbar spine given that she has midline tenderness. We will give 1 L of IV fluids, 5 units of IV insulin, Tylenol. Patient's glucose has improved. Awaiting results of CT scan. CT of the lumbar spine has resulted in reveals bulging disc at L4-L5 as well as findings consistent with chronic pancreatitis. However, the patient has no abdominal pain and no abdominal tenderness. The patient will be admitted to the hospitalist for further management given her ALENA and hyperglycemia. Her pain is improved and is minimal at this time. She expressed understanding and agreement with this plan of care. At 956, I spoke with the hospitalist who states that Dr. Palumbo will accept the patient for admission and assume care. Urinalysis has resulted without findings suggestive of infection. Critical Care Time: Yes Critical care time in (mins) excluding proc time.: 35 Critical care attestation.: If time is entered above; I have spent that time in minutes in the direct care of this critically ill patient, excluding procedure time. Critical care time was spent in the assessment/evaluation, work-up, and management of hyperglycemia requiring IV fluids, IV insulin, frequent glucose rechecks, and repeat assessment and evaluation. ED Disposition Clinical Impression: Acute renal injury, Chronic pancreatitis, Hyperglycemia, Dehydration, L4-L5 disc bulge Disposition: [id number] OP ADMIT IP TO THIS HOSP Is pt being admited?: Yes Condition: Stable
--- NOTE | 2021-04-21 11:10 | Cat Scan Report ---
CT LUMBAR SPINE WITHOUT CONTRAST INDICATION: midline tend, lower back pain . TECHNIQUE: Axial imaging performed through the lower spine without the use of contrast. Sagittal an d coronal reconstructed images were also reviewed. All CT scans at this location are performed using CT dose reduction for ALARA by means of automated exposure control. COMPARISON: None FINDINGS: Alignment: Spinal alignment is normal. Bones: There is no acute osseous abnormality. No significant discogenic DJD or facet arthropathy. No bone lesion. Soft tissues: There is suggestion of a mild bulging disc at L4-5. The remaining discs are unremarkab le. Punctate calyceal stone in the superior left kidney is noted. The pancreas appears severely atrop hic with diffuse calcifications suggesting chronic pancreatitis. IMPRESSION: Mild to moderate bulging disc at L4-5 is suspected. If further evaluation is needed, MRI lumbar spine without contrast could be obtained. No bony abnormality is detected in the lumbar spine. Punctate left renal stone. Findings consistent with chronic pancreatitis. Signer Name: Osmar Barillas Jr, MD Signed: 04/21/2021 11:05 AM Workstation Name: [id number]
[2021-04-21 13:02] LABS: Bacteria,Urine 1+ /HPF (Negative); Mucus,Urine FEW /HPF
[2021-04-21 13:03] LABS: Bilirubin,Urine NEG (Negative); Blood,Urine SM (Negative); Color,Urine Straw (Yellow); Urobilinogen,Urine < 2.0 mg/dL (<2.0)
[2021-04-21 13:09] LABS: Protein,Urine >500 mg/dL (Negative)
--- NOTE | 2021-04-21 20:20 | History and Physical Report ---
History of Present Illness Date of examination: 04/21/21 Date of admission: 04/21/21 09:56 Chief complaint: Flank pain/back pain/uncontrolled blood sugar. History of present illness: Patient 46-year-old female with a history of hypertension anemia, diabetes, chronic kidney disease presents with a 5-day history of right-sided back pain in which she described as sharp nonradiating. Patient states she has dysuria but no fever no pelvic pain no hematuria no exudate. Patient also stated that her sugars have been 500 and greater. Patient has a primary care physician of Dr. Hussein but has not been to visit him. Patient also complains of some headache as well. States her head hurts when her sugars are uncontrolled. Past History Past Medical History: anemia, diabetes, GERD, hypertension. denies: acute MT, atrial fib, arrhythmia, arthritis, CAD, cancer, COPD, dialysis, DVT, ESRD, heart failure, hepatitis, HIV/AIDS, hyperthyroidism, hyperlipidemia, hypothyroidism, liver disease, migraines, pulmonary embolism, renal failure, seizures, stroke, sarcoidosis Past Surgical History: , Other () Social history: no significant social history, lives with family, full code Family history: diabetes, other (Maternal) Medications and Allergies Allergies Allergy/AdvReac Type Severity Reaction Status Date / Time No Known Allergies Allergy Verified 04/13/17 07:32 Home Medications Medication Instructions Recorded Confirmed Last Taken Type AtorvaSTATin [Lipitor] 20 mg PO DAILY 04/13/17 04/21/21 1 Day Ago History ~04/20/21 Gabapentin 300 mg PO Q8HR 04/13/17 04/21/21 1 Day Ago History ~04/20/21 Insulin Glargine,Hum.rec.anlog 80 units SQ HS 04/13/17 04/21/21 2 Days Ago History [Lantus Solostar] ~04/19/21 glipiZIDE [Glucotrol] 10 mg PO BID 04/13/17 04/21/21 1 Day Ago History ~04/20/21 Losartan [Cozaar] 50 mg PO BID #60 tablet 04/15/17 04/21/21 1 Day Ago Rx ~04/20/21 Review of Systems Constitutional: fatigue, weakness, malaise, no weight loss, no weight gain, no fever, no chills, no sweats, no night sweats, no anorexia, no lethargy, no chronic headaches, no poor appetite, no daytime sleepiness Ears, nose, mouth and throat: no deferred, no nose pain, no sinus pressure, no bleeding gums, no mouth pain, no hoarseness, no swelling in mouth, no headache, no vertigo Cardiovascular: no chest pain, no orthopnea, no palpitations, no rapid/irregular heart beat, no edema, no syncope, no lightheadedness, no shortness of breath, no dyspnea on exertion, no paroxysmal nocturnal dyspnea, no claudication, no high blood pressure, no leg edema Respiratory: no pleurisy, no pain, no sleep apnea, no home oxygen Gastrointestinal: nausea, heartburn, no vomiting, no diarrhea, no constipation, no change in bowel habits, no hematemesis, no BRBPR, no melena, no hematochezia, no loss of appetite, no early satiety, no indigestion, no belching, no dyspepsia/bloating, no early satiety, no other Genitourinary Female: flank pain, urinary frequency, no dyspareunia, no dysmenorrhea, no pelvic pain, no menorrhagia, no dysuria, no urgency, no stress incontinence, no post void dribbling, no incomplete emptying, no urge incontinence, no mixed incontinence, no difficulty voiding, no hematuria, no nocturia, no vaginal itching, no vaginal discharge, no vaginal odor, no abnormal vaginal bleeding, no genital sores, no vaginal dryness, no hot flashes Rectal: no pain, no bleeding Musculoskeletal: other, no neck stiffness, no shooting arm pain, no low back pain, no shooting leg pain, no loss of height Neurological: no paralysis, no parathesias, no aphasia, no confusion, no motor disturbance, no double vision, no hearing difficulties, no other Psychiatric: no memory loss, no insomnia, no change in libido, no hallucinations, no hopelessness Endocrine: polydipsia, polyuria, high blood sugars, no polyphagia, no excessive thirst, no nocturia, no excessive sweating, no flushing, no weight change, no proptosis, no deepening of the voice Hematologic/Lymphatic: no easy bleeding, no lymphedema Allergic/Immunologic: no urticaria, no wheezing, no persistent infections, no gluten intolerance Exam - Constitutional Vitals: Temp Pulse Resp BP Pulse Ox 98.2 F 97 H 18 179/107 100 04/20/21 14:08 04/21/21 16:00 04/21/21 16:00 04/21/21 16:00 04/21/21 16:00 General appearance: Present: no acute distress, well-nourished - EENT Eyes: Present: PERRL ENT: hearing intact, clear oral mucosa - Neck Neck: Present: supple, normal ROM - Respiratory Respiratory effort: normal Respiratory: bilateral: CTA - Cardiovascular Heart Sounds: Present: S1 & S2. Absent: rub, click - Extremities Extremities: pulses symmetrical, No edema Extremity abnormal: other (Minimal palpation pain right side. No flank pain no CVA tenderness. Appears musculoskeletal of anything.) Peripheral Pulses: within normal limits - Abdominal General gastrointestinal: Present: soft, non-tender, non-distended, normal bowel sounds Female genitourinary: Present: normal - Integumentary Integumentary: Present: clear, warm, dry - Musculoskeletal Musculoskeletal: gait normal, strength equal bilaterally - Psychiatric Psychiatric: appropriate mood/affect, intact judgment & insight - Neurologic Neurologic: CNII-XII intact, moves all extremities Results - Labs CBC & Chem 7: 04/20/21 14:23 04/20/21 14:23 Labs: Laboratory Last Values WBC 4.5 K/mm3 (4.5-11.0) 04/20/21 14:23 RBC 4.44 M/mm3 (3.65-5.03) 04/20/21 14:23 Hgb 9.8 gm/dl (10.1-14.3) L 04/20/21 14:23 Hct 32.1 % (30.3-42.9) 04/20/21 14:23 MCV 72 fl (79-97) L 04/20/21 14:23 MCH 22 pg (28-32) L 04/20/21 14:23 MCHC 30 % (30-34) 04/20/21 14:23 RDW 15.2 % (13.2-15.2) 04/20/21 14:23 Plt Count 171 K/mm3 (140-440) 04/20/21 14:23 Lymph % (Auto) 13.5 % (13.4-35.0) 04/20/21 14:23 [place] % (Auto) 6.8 % (0.0-7.3) 04/20/21 14:23 Eos % (Auto) 0.1 % (0.0-4.3) 04/20/21 14:23 Baso % (Auto) 0.6 % (0.0-1.8) 04/20/21 14:23 Lymph # (Auto) 0.6 K/mm3 (1.2-5.4) L 04/20/21 14:23 [place] # (Auto) 0.3 K/mm3 (0.0-0.8) 04/20/21 14:23 Eos # (Auto) 0.0 K/mm3 (0.0-0.4) 04/20/21 14:23 Baso # (Auto) 0.0 K/mm3 (0.0-0.1) 04/20/21 14:23 Seg Neutrophils % 79.0 % (40.0-70.0) H 04/20/21 14:23 Seg Neutrophils # 3.5 K/mm3 (1.8-7.7) 04/20/21 14:23 VBG pH 7.267 (7.320-7.420) L 04/20/21 14:23 Sodium 131 mmol/L (137-145) L 04/20/21 14:23 Potassium 4.4 mmol/L (3.6-5.0) 04/20/21 14:23 Chloride 96.2 mmol/L (98-107) L 04/20/21 14:23 Carbon Dioxide 24 mmol/L (22-30) 04/20/21 14:23 Anion Gap 15 mmol/L 04/20/21 14:23 BUN 41 mg/dL (7-17) H 04/20/21 14:23 Creatinine 3.6 mg/dL (0.6-1.2) H 04/20/21 14:23 Estimated GFR 16 ml/min 04/20/21 14:23 BUN/Creatinine Ratio 11 % 04/20/21 14:23 Glucose 586 mg/dL (65-100) H* 04/20/21 14:23 POC Glucose 390 mg/dL (70-105) H 04/21/21 16:07 Calcium 8.7 mg/dL (8.4-10.2) 04/20/21 14:23 Phosphorus 4.00 mg/dL (2.5-4.5) 04/20/21 14:23 Magnesium 1.90 mg/dL (1.7-2.3) 04/20/21 14:23 Total Bilirubin < 0.20 mg/dL (0.1-1.2) 04/20/21 14:23 AST 34 units/L (5-40) 04/20/21 14:23 ALT 37 units/L (7-56) 04/20/21 14:23 Alkaline Phosphatase 76 units/L (35-129) 04/20/21 14:23 Total Protein 6.2 g/dL (6.3-8.2) L 04/20/21 14:23 Albumin 3.3 g/dL (3.9-5) L 04/20/21 14:23 Albumin/Globulin Ratio 1.1 % 04/20/21 14:23 HCG, Qual Negative (Negative) 04/21/21 08:42 Urine Color Straw (Yellow) 04/21/21 09:41 Urine Turbidity Clear (Clear) 04/21/21 09:41 Urine pH 6.0 (5.0-7.0) 04/21/21 09:41 Ur Specific [place] 1.014 (1.003-1.030) 04/21/21 09:41 Urine Protein >500 mg/dL (Negative) 04/21/21 09:41 Urine Glucose (UA) >=500 mg/dL (Negative) 04/21/21 09:41 Urine Ketones Tr mg/dL (Negative) 04/21/21 09:41 Urine Blood Sm (Negative) 04/21/21 09:41 Urine Nitrite Neg (Negative) 04/21/21 09:41 Ur Reducing Substances Not Reportable 04/21/21 09:41 Urine Bilirubin Neg (Negative) 04/21/21 09:41 Urine Ictotest Not Reportable 04/21/21 09:41 Urine Urobilinogen < 2.0 mg/dL (<2.0) 04/21/21 09:41 Ur Leukocyte Esterase Neg (Negative) 04/21/21 09:41 Urine WBC (Auto) 2.0 /HPF (0.0-6.0) 04/21/21 09:41 Urine RBC (Auto) 3.0 /HPF (0.0-6.0) 04/21/21 09:41 U Epithel Cells (Auto) 3.0 /HPF (0-13.0) 04/21/21 09:41 Urine Bacteria (Auto) 1+ /HPF (Negative) 04/21/21 09:41 Urine Mucus Few /HPF 04/21/21 09:41 - Imaging and Cardiology Abdominal x-ray: report reviewed, image reviewed Assessment and Plan Advance Directives: Yes Plan of care discussed with patient/family: Yes - Patient Problems (1) Acute kidney injury superimposed on chronic kidney disease Current Visit: Yes Status: Acute Plan to address problem: Patient with acute on chronic kidney disease. Baseline creatinine appears to be approximately 2.0. Creatinine was 3.6. Most likely secondary to prerenal azotemia. Will admit supportive care with gentle IV fluid hydration. (2) Chronic pancreatitis Current Visit: Yes Status: Acute Plan to address problem: Avoid heavy meals. Fatty meals avoid alcohol appears to be stable at this time. (3) Hyperglycemia Current Visit: Yes Status: Acute Plan to address problem: Secondary to type 1 diabetes. Will resume and titrate insulin. Start with sl iding scale insulin titrate accordingly. (4) Hyperglycemia due to type 1 diabetes mellitus Current Visit: Yes Status: Acute Plan to address problem: We will place patient back on insulin also add sliding scale insulin and titrate accordingly. Sugars uncontrolled add A1c as well. Stressed compliance with medications. (5) L4-L5 disc bulge Current Visit: Yes Status: Acute Plan to address problem: Patient with mild but L4-L5. Does not appear to be causing patient's discomfort. Can follow-up with orthopedist and primary care physician on outside. CT scan back unremarkable. (6) Prerenal azotemia Current Visit: No Status: Acute (7) Anemia Current Visit: Yes Status: Acute Plan to address problem: Chronic anemia. Transfuse if H&H hemoglobin less than 6. (8) Back pain Current Visit: Yes Status: Acute Plan to address problem: Appears to be musculoskeletal at this point. No evidence of UTI no flank pain no fever. (9) Hypertension Current Visit: Yes Status: Acute Plan to address problem: Fair ontrolled continue losartan.
[2021-04-21] MEDS ORDERED: MORPHINE 4 MG/1 ML INJ IV PRN (20:25)
[2021-04-21] MEDS ORDERED: FAMOTIDINE 20 MG/2 ML INJ IV SCH (22:00)
[2021-04-21] MEDS ORDERED: NON-FORMULARY EACH (Insulin Glargine,Hum.Rec.Anlog [Lantus Solostar] 100 UNIT/ML Insuln.Pe SQ SCH (22:00)
[2021-04-21] MEDS: GABAPENTIN 300 MG CAP PO SCH (23:04)
[2021-04-21] MEDS: INSULIN GLARGINE 100 UNITS/ML SUB-Q SCH (23:05)
[2021-04-21] MEDS: ENOXAPARIN 30 MG/0.3 ML INJ SUB-Q SCH (23:06)
[2021-04-21] MEDS: LOSARTAN 50 MG TAB PO SCH (23:06)
[2021-04-21] MEDS: HYDROcodone/ACETAMINOPHEN 5-325 MG TAB PO PRN (23:18)
[2021-04-22] MEDS: IPRATROPIUM/ALBUTEROL SULFATE 3 ML AMPUL.NEB IH SCH ×4 (03:49→21:16)
[2021-04-22 05:39] LABS: Basophils % (Auto) 0.5 % (0.0-1.8); Eosinophils % (Auto) 0.2 % (0.0-4.3); Hematocrit 33.7 % (30.3-42.9); Hemoglobin 10.3 gm/dl (10.1-14.3); Lymphocytes # (Auto) 1.2 K/mm3 (1.2-5.4); Lymphocytes % (Auto) 26.2 % (13.4-35.0); Mean Corpuscular HGB Conc 31 % (30-34); Mean Corpuscular Volume 71 fl (79-97); Monocytes # (Auto) 0.4 K/mm3 (0.0-0.8); Monocytes % (Auto) 8.6 % (0.0-7.3); Platelet Count 140 K/mm3 (140-440); Red Blood Count 4.75 M/mm3 (3.65-5.03); Red Cell Distribution Width 14.6 % (13.2-15.2)
[2021-04-22 05:58] LABS: Calcium 8.2 mg/dL (8.4-10.2)
--- NOTE | 2021-04-22 07:48 | Progress Note ---
Assessment and Plan - Patient Problems (1) Acute kidney injury superimposed on chronic kidney disease Current Visit: Yes Status: Acute Plan to address problem: Patient with acute on chronic kidney disease. Baseline creatinine appears to be approximately 2.0. Creatinine was 3.6. Most likely secondary to prerenal azotemia. At this point I still think it is secondary to prerenal azotemia. Patient has not responded to IV volume replacement at this point. Will be more judicious with IV volume now and recheck renal function in the a.m. If it imp roves patient will be stable for discharge if not will follow any further nephrology recommendations. (2) Chronic pancreatitis Current Visit: Yes Status: Acute Plan to address problem: Avoid heavy meals. Fatty meals avoid alcohol appears to be stable at this time. (3) Hyperglycemia Current Visit: Yes Status: Acute Plan to address problem: Secondary to type 1 diabetes. Will resume and titrate insulin. Start with sliding scale insulin titrate accordingly. Now much better controlled since being more compliant with insulin regime and Accu-Cheks with sliding scale. (4) Hyperglycemia due to type 1 diabetes mellitus Current Visit: Yes Status: Acute Plan to address problem: We will place patient back on insulin also add sliding scale insulin and titrate accordingly. Sugars uncontrolled add A1c as well. Stressed compliance with medications. (5) L4-L5 disc bulge Current Visit: Yes Status: Acute Plan to address problem: Patient with mild but L4-L5. Does not appear to be causing patient's discomfort. Can follow-up with orthopedist and primary care physician on outside. CT scan back unremarkable.. This is patient's etiology for her back pain. This can be done treated as outpatient. With NSAIDs, Ortho evaluation and physical therapy. (6) Prerenal azotemia Current Visit: No Status: Acute Plan to address problem: We will increase IV fluids. (7) Anemia Current Visit: Yes Status: Acute Plan to address problem: Chronic anemia. Transfuse if H&H hemoglobin less than 6. (8) Back pain Current Visit: Yes Status: Acute Plan to address problem: Appears to be musculoskeletal at this point. No evidence of UTI no flank pain no fever. (9) Hypertension Current Visit: Yes Status: Acute Plan to address problem: Fair ontrolled continue losartan. Subjective Date of service: 04/22/21 Principal diagnosis: Hypoglycemia, back pain, acute renal failure Interval history: Patient today feels better. As blood sugar improved it appears patient improved. I think the main thing was uncontrolled blood sugar which caused patient to get weak. Also has underlying acute on chronic kidney injury which does not seem at this point to have responded to IV volume hydration. Objective - Constitutional Vitals: Vital Signs - 12hr 04/21/21 04/21/21 04/21/21 20:00 21:00 22:01 Pulse Rate 110 H 94 H Pulse Rate [ Bilateral] Respiratory 16 14 Rate Respiratory Rate [Bilateral ] Blood Pressure 190/116 196/107 194/115 O2 Sat by Pulse 98 98 97 Oximetry 04/21/21 04/21/21 04/22/21 23:01 23:06 00:02 Pulse Rate 108 H Pulse Rate [ Bilateral] Respiratory Rate Respiratory Rate [Bilateral ] Blood Pressure 194/115 177/93 177/93 O2 Sat by Pulse 97 96 Oximetry 04/22/21 04/22/21 04/22/21 01:01 02:01 03:01 Pulse Rate Pulse Rate [ Bilateral] Respiratory Rate Respiratory Rate [Bilateral ] Blood Pressure 119/73 119/73 103/67 O2 Sat by Pulse 97 97 100 Oximetry 04/22/21 04/22/21 04/22/21 03:50 04:01 05:01 Pulse Rate Pulse Rate [ 86 Bilateral] Respiratory Rate Respiratory 20 Rate [Bilateral ] Blood Pressure 104/69 104/69 O2 Sat by Pulse 100 99 Oximetry General appearance: Present: no acute distress, well-nourished - EENT Eyes: PERRL, EOM intact ENT: hearing intact, clear oral mucosa Ears: bilateral: normal - Neck Neck: supple, normal ROM - Respiratory Respiratory effort: normal Respiratory: bilateral: CTA - Breasts Breasts: normal - Cardiovascular Rhythm: regular Heart Sounds: Present: S1 & S2. Absent: gallop, rub Extremities: pulses intact, No edema, normal color, Full ROM - Gastrointestinal General gastrointestinal: Present: soft, non-tender, non-distended, normal bowel sounds - Genitourinary Female genitourinary: normal - Integumentary Integumentary: clear, warm, dry - Musculoskeletal Musculoskeletal: 1, strength equal bilaterally - Neurologic Neurologic: moves all extremities - Psychiatric Psychiatric: memory intact, appropriate mood/affect, intact judgment & insight - Labs CBC & Chem 7: 04/22/21 03:59 04/22/21 03:59 Labs: Abnormal lab results 04/20/21 04/21/21 04/21/21 Range/Units 14:11 01:55 08:03 MCV (79-97) fl MCH (28-32) pg [place] % (Auto) (0.0-7.3) % BUN (7-17) mg/dL Creatinine (0.6-1.2) mg/dL Glucose (65-100) mg/dL POC Glucose 571 H 303 H 406 H (70-105) mg/dL Calcium (8.4-10.2) mg/dL 04/21/21 04/21/21 04/21/21 Range/Units 13:29 16:07 23:04 MCV (79-97) fl MCH (28-32) pg [place] % (Auto) (0.0-7.3) % BUN (7-17) mg/dL Creatinine (0.6-1.2) mg/dL Glucose (65-100) mg/dL POC Glucose 227 H 390 H 448 H (70-105) mg/dL Calcium (8.4-10.2) mg/dL 04/22/21 04/22/21 04/22/21 Range/Units 03:59 03:59 04:27 MCV 71 L (79-97) fl MCH 22 L (28-32) pg [place] % (Auto) 8.6 H (0.0-7.3) % BUN 45 H (7-17) mg/dL Creatinine 3.6 H (0.6-1.2) mg/dL Glucose 199 H (65-100) mg/dL POC Glucose 202 H (70-105) mg/dL Calcium 8.2 L (8.4-10.2) mg/dL
[2021-04-22] MEDS: glipiZIDE 10 MG TAB PO SCH ×3 (08:22→23:15)
[2021-04-22] MEDS: GABAPENTIN 300 MG CAP PO SCH ×2 (08:27→17:53)
[2021-04-22] MEDS ORDERED: SODIUM CHLORIDE 0.9% 1000 ML 1,000 ML IV SCH (12:30)
[2021-04-22] MEDS: FAMOTIDINE 10 MG TAB PO SCH ×2 (17:48→23:15)
[2021-04-22] MEDS: ONDANSETRON 4 MG/2 ML INJ IV PRN (17:48)
[2021-04-22] MEDS: LOSARTAN 50 MG TAB PO SCH ×2 (17:48→23:14)
[2021-04-22] MEDS: ENOXAPARIN 30 MG/0.3 ML INJ SUB-Q SCH (17:49)
--- NOTE | 2021-04-22 18:45 | Consultation ---
History of Present Illness - Reason for Consult Consult date: 04/22/21 acute renal failure, chronic renal failure - History of Present Illness The patient is a 46 YO female known to our service with history significant for poorly controlled DM type 2, HTN (15 + yrs), Diabetic retinopathy s/p Laser (11/2020), CKD stage 4 and Medical non-compliance who presented to [facility] ED 04/20 with a 5-day history of right-sided back pain in which she described as sharp nonradiating. Patient states she also has dysuria. Patient also stated that her sugars have been 500 and greater. Patient denies fever, chills, N, V, D, dysuria, hematuria, cp or sob. Labs significant for Creat 3.6, BUN 41 and glu 586. Patient was admitted for further evaluation. Nephrology was consulted for treatment of ALENA. Past History Past Medical History: anemia, diabetes, GERD, hypertension, hyperlipidemia, renal failure Past Surgical History: , Other () Social history: no significant social history, lives with family, full code Family history: diabetes, other (Maternal) Medications and Allergies Allergies Allergy/AdvReac Type Severity Reaction Status Date / Time No Known Allergies Allergy Verified 04/13/17 07:32 Home Medications Medication Instructions Recorded Confirmed Last Taken Type AtorvaSTATin [Lipitor] 20 mg PO DAILY 04/13/17 04/21/21 1 Day Ago History ~04/20/21 Gabapentin 300 mg PO Q8HR 04/13/17 04/21/21 1 Day Ago History ~04/20/21 Insulin Glargine,Hum.rec.anlog 80 units SQ HS 04/13/17 04/21/21 2 Days Ago History [Lantus Solostar] ~04/19/21 glipiZIDE [Glucotrol] 10 mg PO BID 04/13/17 04/21/21 1 Day Ago History ~04/20/21 Losartan [Cozaar] 50 mg PO BID #60 tablet 04/15/17 04/21/21 1 Day Ago Rx ~04/20/21 Active Meds: Active Medications Acetaminophen (Acetaminophen 325 Mg Tab) 650 mg PO Q4H PRN PRN Reason: Pain MILD(1-3)/Fever >100.5/REDD Hydrocodone Bitart/Acetaminophen (Hydrocodone/Acetaminophen 5-325 Mg Tab) 2 each PO Q6H PRN PRN Reason: Pain, Moderate (4-6) Last Admin: 04/21/21 23:18 Dose: 2 each Documented by: Albuterol/Ipratropium (Ipratropium/Albuterol Sulfate 3 Ml Ampul.Neb) 1 ampul IH Q6HRT [facility] Last Admin: 04/22/21 03:49 Dose: 1 ampul Documented by: Atorvastatin Calcium (Atorvastatin 20 Mg Tab) 20 mg PO DAILY [facility] Last Admin: 04/22/21 17:50 Dose: 20 mg Documented by: Enoxaparin Sodium (Enoxaparin 30 Mg/0.3 Ml Inj) 30 mg SUB-Q QDAY [facility] Last Admin: 04/22/21 17:49 Dose: 30 mg Documented by: Famotidine (Famotidine 10 Mg Tab) 10 mg PO BID [facility] Last Admin: 04/22/21 17:48 Dose: 10 mg Documented by: Gabapentin (Gabapentin 300 Mg Cap) 300 mg PO Q8HR [facility] Last Admin: 04/22/21 17:53 Dose: 300 mg Documented by: Glipizide (Glipizide 10 Mg Tab) 10 mg PO BID [facility] Last Admin: 04/22/21 17:50 Dose: 10 mg Documented by: Sodium Chloride (Nacl 0.9% 1000 Ml) 1,000 mls @ 125 mls/hr IV DIRECT [facility] Insulin Glargine (Insulin Glargine 100 Units/Ml) 80 units SUB-Q QHS [facility] Last Admin: 04/21/21 23:05 Dose: 80 units Documented by: Losartan Potassium (Losartan 50 Mg Tab) 50 mg PO BID [facility] Last Admin: 04/22/21 17:48 Dose: 50 mg Documented by: Morphine Sulfate (Morphine 4 Mg/1 Ml Inj) 4 mg IV Q4H PRN PRN Reason: Pain , Severe (7-10) Ondansetron HCl (Ondansetron 4 Mg/2 Ml Inj) 4 mg IV Q8H PRN PRN Reason: Nausea And Vomiting Last Admin: 04/22/21 17:48 Dose: 4 mg Documented by: Sodium Chloride (Sodium Chloride 0.9% 10 Ml Flush Syringe) 10 ml IV BID [facility] Last Admin: 04/22/21 17:51 Dose: 10 ml Documented by: Sodium Chloride (Sodium Chloride 0.9% 10 Ml Flush Syringe) 10 ml IV PRN PRN PRN Reason: LINE FLUSH Review of Systems Constitutional: weight loss, anorexia, fatigue, no weight gain, no fever, no chills, no weakness Breasts: deferred Cardiovascular: high blood pressure, no chest pain, no orthopnea, no edema, no syncope, no lightheadedness, no shortness of breath, no leg edema Respiratory: no cough, no shortness of breath Gastrointestinal: abdominal pain, nausea, vomiting, no diarrhea, no melena Genitourinary Female: no dysuria, no hematuria Integumentary: no rash Exam - Vital Signs Vital signs: Vital Signs Temp Pulse Resp BP Pulse Ox 98.2 F 84 18 157/98 99 04/20/21 14:08 04/20/21 14:08 04/20/21 14:08 04/20/21 14:08 04/20/21 14:08 Results - Lab Results 04/22/21 03:59 04/23/21 05:40 Most recent lab results Calcium 8.2 mg/dL (8.4-10.2) L 04/22/21 03:59 Phosphorus 4.00 mg/dL (2.5-4.5) 04/20/21 14:23 Magnesium 1.90 mg/dL (1.7-2.3) 04/20/21 14:23 Assessment and Plan 1. Acute kidney injury: ALENA superimposed on CKD stage 4 in the setting of volume depletion from uncontrolled DM. Renal US negative for [place]. Urine studies ordered. Continue IV fluids. Monitor renal function. Creatinine leveled off. Suspect new baseline. Avoid nephrotoxic agents. Meds dosage based on GFR. Monitor for [employer] needs. 2. FEN: Hyperchloremic metabolic acidosis, monitor. Monitor lytes and volume status. 3. Acute abdominal pain: CT showed L kidney non-obstructive stone, chronic pancreatitis and constipation. 4. DM type 2, uncontrolled: On Glipizide and Lantus. Monitor. 5. Anemia, POA: Monitor. 6. Hypertension. Follow BP. Subjective: Patient was seen and examined at the bedside. Examination: General appearance: well-developed, appears stated age, emaciated HEENT: atraumatic, THOMAS Neck: trachea midline Respiratory: ctab Heart: S1S2, regular, no murmur Abdomen: soft, bowel sounds heard, NT Integumentary: no obvious rash Neurologic: AO, non-focal Ext: edema
--- NOTE | 2021-04-22 22:19 | Ultrasound Report ---
ULTRASOUND RENAL INDICATION / CLINICAL INFORMATION: Acute renal failure.. COMPARISON: None available. FINDINGS: RIGHT KIDNEY: Length = 8.6 cm. - Echogenicity: Normal. - Cortical Thickness: Normal. - Hydronephrosis: None. - Cyst / Mass: None. - Stones: None seen. LEFT KIDNEY: Length = 8.3 cm. - Echogenicity: Normal. - Cortical Thickness: Normal. - Hydronephrosis: None. - Cyst / Mass: None. - Stones: None seen. URINARY BLADDER: No significant abnormality. FREE FLUID: None. ADDITIONAL FINDINGS: None. IMPRESSION: 1. No significant abnormality. Signer Name: Efrain Price MD Signed: 04/22/2021 10:15 PM Workstation Name: [id number]
[2021-04-22] MEDS: INSULIN GLARGINE 100 UNITS/ML SUB-Q SCH (23:15)
[2021-04-23] MEDS: ACETAMINOPHEN 325 MG TAB PO PRN ×3 (00:23→20:31)
[2021-04-23] MEDS: IPRATROPIUM/ALBUTEROL SULFATE 3 ML AMPUL.NEB IH SCH ×2 (02:41→07:40)
[2021-04-23 07:01] LABS: Calcium 7.7 mg/dL (8.4-10.2)
--- NOTE | 2021-04-23 11:11 | Progress Note ---
Assessment and Plan Assessment and plan: Acute on chronic kidney disease. Acute abdominal pain Hyperglycemia Diabetes mellitus uncontrolled. Anemia. Hypertension. GERD. 04/23/2021. Check CT scan of the abdomen and pelvis for further evaluation of abdominal pain. Patient with a baseline creatinine of July 2020 of 2.0. Renal ultrasound shows no abnormality. Await CT scan. Nephrology following. Cont. SSRI and Accu-Cheks. History Interval history: No new issues overnight Hospitalist Physical - Constitutional Vitals: Temp Pulse Resp BP Pulse Ox 97.9 F 104 H 18 154/100 97 04/23/21 08:15 04/23/21 08:15 04/23/21 08:15 04/23/21 08:15 04/23/21 10:00 General appearance: Present: no acute distress, well-nourished - EENT Eyes: Present: PERRL, EOM intact ENT: hearing intact, clear oral mucosa, dentition normal - Neck Neck: Present: supple, normal ROM - Respiratory Respiratory effort: normal Respiratory: bilateral: CTA - Cardiovascular Rhythm: regular Heart Sounds: Present: S1 & S2. Absent: gallop, rub - Extremities Extremities: no ischemia, No edema, Full ROM - Abdominal General gastrointestinal: soft, non-tender, non-distended, normal bowel sounds - Integumentary Integumentary: Present: clear, warm, dry - Neurologic Neurologic: CNII-XII intact, moves all extremities Results - Labs CBC & Chem 7: 04/22/21 03:59 04/23/21 05:40 Labs: Laboratory Last Values WBC 4.6 K/mm3 (4.5-11.0) 04/22/21 03:59 RBC 4.75 M/mm3 (3.65-5.03) 04/22/21 03:59 Hgb 10.3 gm/dl (10.1-14.3) 04/22/21 03:59 Hct 33.7 % (30.3-42.9) 04/22/21 03:59 MCV 71 fl (79-97) L 04/22/21 03:59 MCH 22 pg (28-32) L 04/22/21 03:59 MCHC 31 % (30-34) 04/22/21 03:59 RDW 14.6 % (13.2-15.2) 04/22/21 03:59 Plt Count 140 K/mm3 (140-440) 04/22/21 03:59 Lymph % (Auto) 26.2 % (13.4-35.0) 04/22/21 03:59 [place] % (Auto) 8.6 % (0.0-7.3) H 04/22/21 03:59 Eos % (Auto) 0.2 % (0.0-4.3) 04/22/21 03:59 Baso % (Auto) 0.5 % (0.0-1.8) 04/22/21 03:59 Lymph # (Auto) 1.2 K/mm3 (1.2-5.4) 04/22/21 03:59 [place] # (Auto) 0.4 K/mm3 (0.0-0.8) 04/22/21 03:59 Eos # (Auto) 0.0 K/mm3 (0.0-0.4) 04/22/21 03:59 Baso # (Auto) 0.0 K/mm3 (0.0-0.1) 04/22/21 03:59 Seg Neutrophils % 64.5 % (40.0-70.0) 04/22/21 03:59 Seg Neutrophils # 3.0 K/mm3 (1.8-7.7) 04/22/21 03:59 VBG pH 7.267 (7.320-7.420) L 04/20/21 14:23 Sodium 141 mmol/L (137-145) 04/23/21 05:40 Potassium 4.1 mmol/L (3.6-5.0) 04/23/21 05:40 Chloride 108.5 mmol/L (98-107) H 04/23/21 05:40 Carbon Dioxide 21 mmol/L (22-30) L 04/23/21 05:40 Anion Gap 16 mmol/L 04/23/21 05:40 BUN 40 mg/dL (7-17) H 04/23/21 05:40 Creatinine 3.5 mg/dL (0.6-1.2) H 04/23/21 05:40 Estimated GFR 17 ml/min 04/23/21 05:40 BUN/Creatinine Ratio 11 % 04/23/21 05:40 Glucose 52 mg/dL (65-100) L 04/23/21 05:40 POC Glucose 71 mg/dL (70-105) 04/23/21 08:13 Hemoglobin A1c 20.2 % (4-6) H 04/23/21 05:40 Calcium 7.7 mg/dL (8.4-10.2) L 04/23/21 05:40 Phosphorus 4.00 mg/dL (2.5-4.5) 04/20/21 14:23 Magnesium 1.90 mg/dL (1.7-2.3) 04/20/21 14:23 Total Bilirubin < 0.20 mg/dL (0.1-1.2) 04/20/21 14:23 AST 34 units/L (5-40) 04/20/21 14:23 ALT 37 units/L (7-56) 04/20/21 14:23 Alkaline Phosphatase 76 units/L (35-129) 04/20/21 14:23 Total Protein 6.2 g/dL (6.3-8.2) L 04/20/21 14:23 Albumin 3.3 g/dL (3.9-5) L 04/20/21 14:23 Albumin/Globulin Ratio 1.1 % 04/20/21 14:23 HCG, Qual Negative (Negative) 04/21/21 08:42 PTH Intact 185.4 pg/mL (15-65) H 04/23/21 05:40 Urine Color Straw (Yellow) 04/21/21 09:41 Urine Turbidity Clear (Clear) 04/21/21 09:41 Urine pH 6.0 (5.0-7.0) 04/21/21 09:41 Ur Specific [place] 1.014 (1.003-1.030) 04/21/21 09:41 Urine Protein >500 mg/dL (Negative) 04/21/21 09:41 Urine Glucose (UA) >=500 mg/dL (Negative) 04/21/21 09:41 Urine Ketones Tr mg/dL (Negative) 04/21/21 09:41 Urine Blood Sm (Negative) 04/21/21 09:41 Urine Nitrite Neg (Negative) 04/21/21 09:41 Ur Reducing Substances Not Reportable 04/21/21 09:41 Urine Bilirubin Neg (Negative) 04/21/21 09:41 Urine Ictotest Not Reportable 04/21/21 09:41 Urine Urobilinogen < 2.0 mg/dL (<2.0) 04/21/21 09:41 Ur Leukocyte Esterase Neg (Negative) 04/21/21 09:41 Urine WBC (Auto) 2.0 /HPF (0.0-6.0) 04/21/21 09:41 Urine RBC (Auto) 3.0 /HPF (0.0-6.0) 04/21/21 09:41 U Epithel Cells (Auto) 3.0 /HPF (0-13.0) 04/21/21 09:41 Urine Bacteria (Auto) 1+ /HPF (Negative) 04/21/21 09:41 Urine Mucus Few /HPF 04/21/21 09:41 Carrera/IV: Voiding Method Toilet Active Medications - Current Medications Current Medications: Generic Name Dose Route Start Last Admin Trade Name Freq PRN Reason Stop Dose Admin Acetaminophen 650 mg 04/21/21 20:25 04/23/21 00:23 Acetaminophen 325 Mg Tab PO 650 mg Q4H PRN Administration Pain MILD(1-3)/Fever >100.5/REDD Hydrocodone Bitart/Acetaminophen 2 each 04/21/21 20:25 04/21/21 23:18 Hydrocodone/Acetaminophen 5-325 Mg Tab PO 2 each Q6H PRN Administration Pain, Moderate (4-6) Albuterol/Ipratropium 1 ampul 04/22/21 02:00 04/23/21 07:40 Ipratropium/Albuterol Sulfate 3 Ml Ampul.Neb IH 1 ampul Q6HRT SUNITHA Administration Atorvastatin Calcium 20 mg 04/22/21 10:00 04/22/21 17:50 Atorvastatin 20 Mg Tab PO 20 mg DAILY SUNITHA Administration Enoxaparin Sodium 30 mg 04/21/21 21:00 04/22/21 17:49 Enoxaparin 30 Mg/0.3 Ml Inj SUB-Q 30 mg QDAY SUNITHA Administration Famotidine 10 mg 04/22/21 10:00 04/22/21 23:15 Famotidine 10 Mg Tab PO Not Given BID SUNITHA Glipizide 10 mg 04/21/21 22:00 04/22/21 23:15 Glipizide 10 Mg Tab PO Not Given BID SUNITHA Sodium Chloride 1,000 mls @ 125 mls/hr 04/22/21 12:30 04/23/21 06:33 Nacl 0.9% 1000 Ml IV 125 mls/hr DIRECT SUNITHA Administration Insulin Glargine 80 units 04/21/21 22:00 04/22/21 23:15 Insulin Glargine 100 Units/Ml SUB-Q Not Given QHS [facility] Losartan Potassium 50 mg 04/21/21 22:00 04/22/21 23:14 Losartan 50 Mg Tab PO Not Given BID SUNITHA Morphine Sulfate 4 mg 04/21/21 20:25 Morphine 4 Mg/1 Ml Inj IV Q4H PRN Pain , Severe (7-10) Ondansetron HCl 4 mg 04/21/21 20:25 04/22/21 17:48 Ondansetron 4 Mg/2 Ml Inj IV 4 mg Q8H PRN Administration Nausea And Vomiting Sodium Chloride 10 ml 04/21/21 22:00 04/22/21 23:08 Sodium Chloride 0.9% 10 Ml Flush Syringe IV 10 ml BID SUNITHA Administration Sodium Chloride 10 ml 04/21/21 20:25 Sodium Chloride 0.9% 10 Ml Flush Syringe IV PRN PRN LINE FLUSH
[2021-04-23] MEDS: ENOXAPARIN 30 MG/0.3 ML INJ SUB-Q SCH (11:32)
[2021-04-23] MEDS: FAMOTIDINE 10 MG TAB PO SCH ×2 (11:32→22:18)
[2021-04-23] MEDS: glipiZIDE 10 MG TAB PO SCH ×2 (11:32→22:23)
[2021-04-23] MEDS: LOSARTAN 50 MG TAB PO SCH ×2 (11:32→22:18)
--- NOTE | 2021-04-23 14:00 | Cat Scan Report ---
CT ABDOMEN AND PELVIS WITHOUT CONTRAST INDICATION / CLINICAL INFORMATION: abd pain, flank pain. TECHNIQUE: Axial CT images were obtained through the abdomen and pelvis without IV contrast. All CT scans at this location are performed using CT dose reduction for ALARA by means of automated exposure control. COMPARISON: None available. FINDINGS: LOWER CHEST: Bilateral patchy airspace opacities in the lung bases. LIVER: No significant abnormality. GALLBLADDER: No significant abnormality. BILE DUCTS: No significant abnormality. PANCREAS: Severely atrophic containing calcifications. SPLEEN: No significant abnormality. ADRENALS: No significant abnormality. RIGHT KIDNEY / URETER: No significant abnormality. LEFT KIDNEY / URETER: 2 mm nonobstructing stone in the left upper pole. STOMACH / SMALL BOWEL: No significant abnormality. COLON: Moderate amount of stool throughout the colon. APPENDIX: No significant abnormality. PERITONEUM: No free fluid. No free air. No fluid collection. LYMPH NODES: No significant adenopathy. AORTA / ARTERIES: No significant abnormality. IVC / VEINS: No significant abnormality. URINARY BLADDER: Distended REPRODUCTIVE ORGANS: There is a 4.1 x 4.5 cm pedunculated mass off the fundus of the uterus. ADDITIONAL FINDINGS: Injection-related changes in the subcutaneous tissues of the anterior abdomen. R ectus diastasis with fat-containing umbilical hernia. SKELETAL SYSTEM: No significant abnormality. IMPRESSION: 1. Bilateral groundglass opacities in the lung bases concerning for pneumonia. 2. Nonobstructing 2 mm stone in the left kidney. No hydronephrosis. 3. Findings of chronic pancreatitis. 4. Pedunculated mass off the fundus of the uterus likely represents a fibroid. Further evaluation wit h ultrasound can be performed if clinically indicated. 5. Moderate colonic stool burden can be seen with constipation. 6.Additional incidental findings as above. Signer Name: Deni Ortega MD Signed: 04/23/2021 1:48 PM Workstation Name: [id number]
--- NOTE | 2021-04-23 15:46 | XRay Report ---
CHEST 1 VIEW 04/23/2021 12:48 PM INDICATION / CLINICAL INFORMATION: possible pneumonia. COMPARISON: 07/17/2020. FINDINGS: SUPPORT DEVICES: None. HEART / MEDIASTINUM: No significant abnormality. LUNGS / PLEURA: Airspace opacity right lower lobe. No pneumothorax. No pleural effusion. ADDITIONAL FINDINGS: No significant additional findings. IMPRESSION: 1. Airspace opacity in the right lower lobe concerning for pneumonia. Signer Name: Deni Ortega MD Signed: 04/23/2021 2:14 PM Workstation Name: [id number]
--- NOTE | 2021-04-23 17:11 | Progress Note ---
Assessment and Plan 1. Acute kidney injury: ALENA superimposed on CKD stage 4 in the setting of volume depletion from uncontrolled DM. Renal US negative for [place]. Urine studies ordered. Continue IV fluids. Monitor renal function. Creatinine leveled off. Suspect new baseline. Avoid nephrotoxic agents. Meds dosage based on GFR. Monitor for PREPRESS MANAGER needs. 2. FEN: Hyperchloremic metabolic acidosis, monitor. Monitor lytes and volume status. 3. Acute abdominal pain: CT showed L kidney non-obstructive stone, chronic pancreatitis and constipation. 4. DM type 2, uncontrolled: On Glipizide and Lantus. Monitor. 5. CT showing bilateral lung base opacities: Covid test pending. 6. Anemia, POA: Monitor. 7. Hypertension. Follow BP. Subjective: Patient was seen and examined at the bedside. Examination: General appearance: well-developed, appears stated age, emaciated HEENT: atraumatic, THOMAS Neck: trachea midline Respiratory: ctab Heart: S1S2, regular, no murmur Abdomen: soft, bowel sounds heard, NT Integumentary: no obvious rash Neurologic: AO, non-focal Ext: edema Subjective Date of service: 04/23/21 Principal diagnosis: Hypoglycemia, back pain, acute renal failure Objective - Vital Signs Vital signs: Vital Signs - 12hr 04/23/21 04/23/21 04/23/21 05:38 07:40 08:15 Temperature 98.8 F 97.9 F Pulse Rate 93 H 104 H Pulse Rate [ 96 H Bilateral] Respiratory 20 18 Rate Respiratory 18 Rate [Bilateral ] Blood Pressure 122/80 154/100 O2 Sat by Pulse 97 98 Oximetry 04/23/21 04/23/21 04/23/21 10:00 11:51 12:51 Temperature 101.3 F H 102.0 F H Pulse Rate 109 H Pulse Rate [ Bilateral] Respiratory 18 Rate Respiratory Rate [Bilateral ] Blood Pressure 143/78 O2 Sat by Pulse 97 99 Oximetry 04/23/21 04/23/21 13:39 15:42 Temperature 99.0 F Pulse Rate 97 H Pulse Rate [ Bilateral] Respiratory 16 Rate Respiratory Rate [Bilateral ] Blood Pressure 134/81 O2 Sat by Pulse 97 99 Oximetry - Lab 04/22/21 03:59 04/23/21 05:40 Most recent lab results Calcium 7.7 mg/dL (8.4-10.2) L 04/23/21 05:40 Phosphorus 4.00 mg/dL (2.5-4.5) 04/20/21 14:23 Magnesium 1.90 mg/dL (1.7-2.3) 04/20/21 14:23 Medications & Allergies - Medications Allergies/Adverse Reactions: Allergies No Known Allergies Allergy (Verified 04/13/17 07:32) Home Medications: Home Medications Medication Instructions Recorded Confirmed Last Taken Type AtorvaSTATin [Lipitor] 20 mg PO DAILY 04/13/17 04/21/21 1 Day Ago History ~04/20/21 Gabapentin 300 mg PO Q8HR 04/13/17 04/21/21 1 Day Ago History ~04/20/21 Insulin Glargine,Hum.rec.anlog 80 units SQ HS 04/13/17 04/21/21 2 Days Ago History [Lantus Solostar] ~04/19/21 glipiZIDE [Glucotrol] 10 mg PO BID 04/13/17 04/21/21 1 Day Ago History ~04/20/21 Losartan [Cozaar] 50 mg PO BID #60 tablet 04/15/17 04/21/21 1 Day Ago Rx ~04/20/21 Active Medications: Generic Name Dose Route Start Last Admin Trade Name Freq PRN Reason Stop Dose Admin Acetaminophen 650 mg 04/21/21 20:25 04/23/21 12:06 Acetaminophen 325 Mg Tab PO 650 mg Q4H PRN Administration Pain MILD(1-3)/Fever >100.5/REDD Hydrocodone Bitart/Acetaminophen 2 each 04/21/21 20:25 04/21/21 23:18 Hydrocodone/Acetaminophen 5-325 Mg Tab PO 2 each Q6H PRN Administration Pain, Moderate (4-6) Atorvastatin Calcium 20 mg 04/22/21 10:00 04/23/21 11:32 Atorvastatin 20 Mg Tab PO 20 mg DAILY SUNITHA Administration Enoxaparin Sodium 30 mg 04/21/21 21:00 04/23/21 11:32 Enoxaparin 30 Mg/0.3 Ml Inj SUB-Q 30 mg QDAY SUNITHA Administration Famotidine 10 mg 04/22/21 10:00 04/23/21 11:32 Famotidine 10 Mg Tab PO 10 mg BID SUNITHA Administration Glipizide 10 mg 04/21/21 22:00 04/23/21 11:32 Glipizide 10 Mg Tab PO 10 mg BID SUNITHA Administration Dextrose/Sodium Chloride 1,000 mls @ 125 mls/hr 04/23/21 13:00 D5/0.45ns IV DIRECT SUNITHA Insulin Glargine 80 units 04/21/21 22:00 04/22/21 23:15 Insulin Glargine 100 Units/Ml SUB-Q Not Given QHS [facility] Losartan Potassium 50 mg 04/21/21 22:00 04/23/21 11:32 Losartan 50 Mg Tab PO 50 mg BID SUNITHA Administration Morphine Sulfate 4 mg 04/21/21 20:25 Morphine 4 Mg/1 Ml Inj IV Q4H PRN Pain , Severe (7-10) Ondansetron HCl 4 mg 04/21/21 20:25 04/22/21 17:48 Ondansetron 4 Mg/2 Ml Inj IV 4 mg Q8H PRN Administration Nausea And Vomiting Sodium Chloride 10 ml 04/21/21 22:00 04/23/21 11:32 Sodium Chloride 0.9% 10 Ml Flush Syringe IV 10 ml BID SUNITHA Administration Sodium Chloride 10 ml 04/21/21 20:25 Sodium Chloride 0.9% 10 Ml Flush Syringe IV PRN PRN LINE FLUSH
[2021-04-23 20:44] LABS: C-Reactive Protein 1.1 mg/dL (0.00-1.30)
[2021-04-23] MEDS: INSULIN GLARGINE 100 UNITS/ML SUB-Q SCH (22:24)
[2021-04-24] MEDS: ACETAMINOPHEN 325 MG TAB PO PRN ×2 (05:26→18:14)
[2021-04-24] MEDS: D5W/0.45% NACL 1,000 ML IV SCH ×2 (06:08→17:20)
[2021-04-24 06:19] LABS: Calcium 7.4 mg/dL (8.4-10.2)
--- NOTE | 2021-04-24 08:50 | Progress Note ---
Assessment and Plan 1. Acute kidney injury: ALENA superimposed on CKD stage 4 in the setting of volume depletion from uncontrolled DM. Renal US negative for [place]. Urine studies ordered. Continue IV fluids. Monitor renal function. Creatinine leveled off. Likely new baseline. Avoid nephrotoxic agents. Meds dosage based on GFR. 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 2. FEN: Hyperchloremic metabolic acidosis, monitor. Monitor lytes and volume status. 3. Acute abdominal pain: CT showed L kidney non-obstructive stone, chronic pancreatitis and constipation. 4. DM type 2, uncontrolled: On Lantus. Monitor. 5. Covid PNA: CT showing bilateral lung base opacities. ID consulted. 6. Anemia, POA: Monitor. 7. Hypertension. Follow BP. Subjective: Patient was seen and examined at the bedside. Examination: General appearance: well-developed, appears stated age, emaciated HEENT: atraumatic, THOMAS Neck: trachea midline Respiratory: ?rales Heart: S1S2, regular, no murmur Abdomen: soft, bowel sounds heard, NT Integumentary: no obvious rash Neurologic: AO, non-focal Ext: edema Subjective Date of service: 04/24/21 Principal diagnosis: Hypoglycemia, back pain, acute renal failure Objective - Vital Signs Vital signs: Vital Signs - 12hr 04/23/21 04/23/21 04/23/21 22:00 22:18 22:48 Temperature 102.7 F H Pulse Rate 106 H Respiratory 18 Rate Blood Pressure 160/85 121/76 O2 Sat by Pulse 96 99 Oximetry 04/24/21 04/24/21 03:56 08:22 Temperature 102.5 F H 98.9 F Pulse Rate 113 H Respiratory 18 18 Rate Blood Pressure 138/95 147/89 O2 Sat by Pulse 98 Oximetry - Lab 04/22/21 03:59 04/24/21 05:31 Most recent lab results Calcium 7.4 mg/dL (8.4-10.2) L 04/24/21 05:31 Phosphorus 4.00 mg/dL (2.5-4.5) 04/20/21 14:23 Magnesium 1.90 mg/dL (1.7-2.3) 04/20/21 14:23 Medications & Allergies - Medications Allergies/Adverse Reactions: Allergies No Known Allergies Allergy (Verified 04/13/17 07:32) Home Medications: Home Medications Medication Instructions Recorded Confirmed Last Taken Type AtorvaSTATin [Lipitor] 20 mg PO DAILY 04/13/17 04/21/21 1 Day Ago History ~04/20/21 Gabapentin 300 mg PO Q8HR 04/13/17 04/21/21 1 Day Ago History ~04/20/21 Insulin Glargine,Hum.rec.anlog 80 units SQ HS 04/13/17 04/21/21 2 Days Ago History [Lantus Solostar] ~04/19/21 glipiZIDE [Glucotrol] 10 mg PO BID 04/13/17 04/21/21 1 Day Ago History ~04/20/21 Losartan [Cozaar] 50 mg PO BID #60 tablet 04/15/17 04/21/21 1 Day Ago Rx ~04/20/21 Active Medications: Generic Name Dose Route Start Last Admin Trade Name Freq PRN Reason Stop Dose Admin Acetaminophen 650 mg 04/21/21 20:25 04/24/21 05:26 Acetaminophen 325 Mg Tab PO 650 mg Q4H PRN Administration Pain MILD(1-3)/Fever >100.5/REDD Hydrocodone Bitart/Acetaminophen 2 each 04/21/21 20:25 04/21/21 23:18 Hydrocodone/Acetaminophen 5-325 Mg Tab PO 2 each Q6H PRN Administration Pain, Moderate (4-6) Atorvastatin Calcium 20 mg 04/22/21 10:00 04/23/21 11:32 Atorvastatin 20 Mg Tab PO 20 mg DAILY SUNITHA Administration Enoxaparin Sodium 30 mg 04/21/21 21:00 04/23/21 11:32 Enoxaparin 30 Mg/0.3 Ml Inj SUB-Q 30 mg QDAY SUNITHA Administration Famotidine 10 mg 04/22/21 10:00 04/23/21 22:18 Famotidine 10 Mg Tab PO 10 mg BID SUNITHA Administration Dextrose/Sodium Chloride 1,000 mls @ 125 mls/hr 04/23/21 13:00 04/24/21 06:08 D5/0.45ns IV 125 mls/hr DIRECT SUNITHA Administration Ceftriaxone Sodium 1 gm in 50 mls @ 100 mls/hr 04/24/21 10:00 Rocephin/Ns 1 Gm/50 Ml IV Q24H SUNITHA Protocol Insulin Glargine 80 units 04/21/21 22:00 04/23/21 22:24 Insulin Glargine 100 Units/Ml SUB-Q Not Given QHS SUNITHA Losartan Potassium 50 mg 04/21/21 22:00 04/23/21 22:18 Losartan 50 Mg Tab PO 50 mg BID SUNITHA Administration Morphine Sulfate 4 mg 04/21/21 20:25 Morphine 4 Mg/1 Ml Inj IV Q4H PRN Pain , Severe (7-10) Ondansetron HCl 4 mg 04/21/21 20:25 04/22/21 17:48 Ondansetron 4 Mg/2 Ml Inj IV 4 mg Q8H PRN Administration Nausea And Vomiting Sodium Chloride 10 ml 04/21/21 22:00 04/23/21 22:18 Sodium Chloride 0.9% 10 Ml Flush Syringe IV 10 ml BID SUNITHA Administration Sodium Chloride 10 ml 04/21/21 20:25 Sodium Chloride 0.9% 10 Ml Flush Syringe IV PRN PRN LINE FLUSH
--- NOTE | 2021-04-24 10:15 | Progress Note ---
Assessment and Plan Assessment and plan: Acute on chronic kidney disease. Bilateral pneumonia. Acute abdominal pain. Resolved. Hyperglycemia Diabetes mellitus uncontrolled. Anemia. Hypertension. GERD. 04/23/2021. Check CT scan of the abdomen and pelvis for further evaluation of abdominal pain. Patient with a baseline creatinine of July 2020 of 2.0. Renal ultrasound shows no abnormality. Await CT scan. Nephrology following. C ont. SSRI and Accu-Cheks. 04/24/2021. CT scan of the abdomen shows nonobstructing renal stone and no hydronephrosis. However, there is report of bilateral groundglass opacities in the lung bases concerning for pneumonia. Patient does have associated fever of 102. ID consulted. Procalcitonin normal. Mildly elevated inflammatory markers with D-dimer 380, ferritin 350, LDH 400 and CRP 1.1. Patient reports having Covid vaccination approximately 3 months ago. Await Covid PCR testing. History Interval history: No new issues overnight Hospitalist Physical - Constitutional Vitals: Temp Pulse Resp BP Pulse Ox 98.9 F 113 H 18 147/89 98 04/24/21 08:22 04/24/21 03:56 04/24/21 08:22 04/24/21 08:22 04/24/21 03:56 General appearance: Present: no acute distress, well-nourished - EENT Eyes: Present: PERRL, EOM intact ENT: hearing intact, clear oral mucosa, dentition normal - Neck Neck: Present: supple, normal ROM - Respiratory Respiratory effort: normal Respiratory: bilateral: CTA - Cardiovascular Rhythm: regular Heart Sounds: Present: S1 & S2. Absent: gallop, rub - Extremities Extremities: no ischemia, No edema, Full ROM - Abdominal General gastrointestinal: soft, non-tender, non-distended, normal bowel sounds - Integumentary Integumentary: Present: clear, warm, dry - Neurologic Neurologic: CNII-XII intact, moves all extremities Results - Labs CBC & Chem 7: 04/22/21 03:59 04/24/21 05:31 Labs: Laboratory Last Values WBC 4.6 K/mm3 (4.5-11.0) 04/22/21 03:59 RBC 4.75 M/mm3 (3.65-5.03) 04/22/21 03:59 Hgb 10.3 gm/dl (10.1-14.3) 04/22/21 03:59 Hct 33.7 % (30.3-42.9) 04/22/21 03:59 MCV 71 fl (79-97) L 04/22/21 03:59 MCH 22 pg (28-32) L 04/22/21 03:59 MCHC 31 % (30-34) 04/22/21 03:59 RDW 14.6 % (13.2-15.2) 04/22/21 03:59 Plt Count 140 K/mm3 (140-440) 04/22/21 03:59 Lymph % (Auto) 26.2 % (13.4-35.0) 04/22/21 03:59 [place] % (Auto) 8.6 % (0.0-7.3) H 04/22/21 03:59 Eos % (Auto) 0.2 % (0.0-4.3) 04/22/21 03:59 Baso % (Auto) 0.5 % (0.0-1.8) 04/22/21 03:59 Lymph # (Auto) 1.2 K/mm3 (1.2-5.4) 04/22/21 03:59 [place] # (Auto) 0.4 K/mm3 (0.0-0.8) 04/22/21 03:59 Eos # (Auto) 0.0 K/mm3 (0.0-0.4) 04/22/21 03:59 Baso # (Auto) 0.0 K/mm3 (0.0-0.1) 04/22/21 03:59 Seg Neutrophils % 64.5 % (40.0-70.0) 04/22/21 03:59 Seg Neutrophils # 3.0 K/mm3 (1.8-7.7) 04/22/21 03:59 D-Dimer 380.81 ng/mlDDU (0-234) H 04/23/21 18:57 VBG pH 7.267 (7.320-7.420) L 04/20/21 14:23 Sodium 141 mmol/L (137-145) 04/24/21 05:31 Potassium 4.6 mmol/L (3.6-5.0) 04/24/21 05:31 Chloride 108.9 mmol/L (98-107) H 04/24/21 05:31 Carbon Dioxide 22 mmol/L (22-30) 04/24/21 05:31 Anion Gap 15 mmol/L 04/24/21 05:31 BUN 39 mg/dL (7-17) H 04/24/21 05:31 Creatinine 3.6 mg/dL (0.6-1.2) H 04/24/21 05:31 Estimated GFR 16 ml/min 04/24/21 05:31 BUN/Creatinine Ratio 11 % 04/24/21 05:31 Glucose 39 mg/dL (65-100) L* 04/24/21 05:31 POC Glucose 63 mg/dL (70-105) L 04/24/21 08:33 Hemoglobin A1c 20.2 % (4-6) H 04/23/21 05:40 Calcium 7.4 mg/dL (8.4-10.2) L 04/24/21 05:31 Phosphorus 4.00 mg/dL (2.5-4.5) 04/20/21 14:23 Magnesium 1.90 mg/dL (1.7-2.3) 04/20/21 14:23 Ferritin 350.8 ng/mL (10.0-200.0) H 04/23/21 18:57 Total Bilirubin < 0.20 mg/dL (0.1-1.2) 04/20/21 14:23 AST 34 units/L (5-40) 04/20/21 14:23 ALT 37 units/L (7-56) 04/20/21 14:23 Alkaline Phosphatase 76 units/L (35-129) 04/20/21 14:23 Lactate Dehydrogenase 400 units/L (91-180) H 04/23/21 18:57 C-Reactive Protein 1.10 mg/dL (0.00-1.30) 04/23/21 18:57 Total Protein 6.2 g/dL (6.3-8.2) L 04/20/21 14:23 Albumin 3.3 g/dL (3.9-5) L 04/20/21 14:23 Albumin/Globulin Ratio 1.1 % 04/20/21 14:23 Procalcitonin 0.29 ng/mL (<0.15) 04/23/21 18:57 HCG, Qual Negative (Negative) 04/21/21 08:42 PTH Intact 185.4 pg/mL (15-65) H 04/23/21 05:40 Urine Color Straw (Yellow) 04/21/21 09:41 Urine Turbidity Clear (Clear) 04/21/21 09:41 Urine pH 6.0 (5.0-7.0) 04/21/21 09:41 Ur Specific [place] 1.014 (1.003-1.030) 04/21/21 09:41 Urine Protein >500 mg/dL (Negative) 04/21/21 09:41 Urine Glucose (UA) >=500 mg/dL (Negative) 04/21/21 09:41 Urine Ketones Tr mg/dL (Negative) 04/21/21 09:41 Urine Blood Sm (Negative) 04/21/21 09:41 Urine Nitrite Neg (Negative) 04/21/21 09:41 Ur Reducing Substances Not Reportable 04/21/21 09:41 Urine Bilirubin Neg (Negative) 04/21/21 09:41 Urine Ictotest Not Reportable 04/21/21 09:41 Urine Urobilinogen < 2.0 mg/dL (<2.0) 04/21/21 09:41 Ur Leukocyte Esterase Neg (Negative) 04/21/21 09:41 Urine WBC (Auto) 2.0 /HPF (0.0-6.0) 04/21/21 09:41 Urine RBC (Auto) 3.0 /HPF (0.0-6.0) 04/21/21 09:41 U Epithel Cells (Auto) 3.0 /HPF (0-13.0) 04/21/21 09:41 Urine Bacteria (Auto) 1+ /HPF (Negative) 04/21/21 09:41 Urine Mucus Few /HPF 04/21/21 09:41 Microbiology: Microbiology 04/23/21 13:47 Peripheral/Venous Blood Culture - Preliminary Culture in Progress 04/23/21 14:01 Peripheral/Venous Blood Culture - Preliminary Culture in Progress Carrera/IV: Voiding Method Toilet Active Medications - Current Medications Current Medications: Generic Name Dose Route Start Last Admin Trade Name Freq PRN Reason Stop Dose Admin Acetaminophen 650 mg 04/21/21 20:25 04/24/21 05:26 Acetaminophen 325 Mg Tab PO 650 mg Q4H PRN Administration Pain MILD(1-3)/Fever >100.5/REDD Hydrocodone Bitart/Acetaminophen 2 each 04/21/21 20:25 04/21/21 23:18 Hydrocodone/Acetaminophen 5-325 Mg Tab PO 2 each Q6H PRN Administration Pain, Moderate (4-6) Atorvastatin Calcium 20 mg 04/22/21 10:00 04/23/21 11:32 Atorvastatin 20 Mg Tab PO 20 mg DAILY SUNITHA Administration Enoxaparin Sodium 30 mg 04/21/21 21:00 04/23/21 11:32 Enoxaparin 30 Mg/0.3 Ml Inj SUB-Q 30 mg QDAY SUNITHA Administration Famotidine 10 mg 04/22/21 10:00 04/23/21 22:18 Famotidine 10 Mg Tab PO 10 mg BID SUNITHA Administration Dextrose/Sodium Chloride 1,000 mls @ 125 mls/hr 04/23/21 13:00 04/24/21 06:08 D5/0.45ns IV 125 mls/hr DIRECT SUNITHA Administration Ceftriaxone Sodium 1 gm in 50 mls @ 100 mls/hr 04/24/21 10:00 Rocephin/Ns 1 Gm/50 Ml IV Q24H COUNTS INCLUDE 234 BEDS AT THE [facility] Protocol Insulin Glargine 80 units 04/21/21 22:00 04/23/21 22:24 Insulin Glargine 100 Units/Ml SUB-Q Not Given QHS COUNTS INCLUDE 234 BEDS AT THE [facility] Losartan Potassium 50 mg 04/21/21 22:00 04/23/21 22:18 Losartan 50 Mg Tab PO 50 mg BID SUNITHA Administration Morphine Sulfate 4 mg 04/21/21 20:25 Morphine 4 Mg/1 Ml Inj IV Q4H PRN Pain , Severe (7-10) Ondansetron HCl 4 mg 04/21/21 20:25 04/22/21 17:48 Ondansetron 4 Mg/2 Ml Inj IV 4 mg Q8H PRN Administration Nausea And Vomiting Sodium Chloride 10 ml 04/21/21 22:00 04/23/21 22:18 Sodium Chloride 0.9% 10 Ml Flush Syringe IV 10 ml BID SUNITHA Administration Sodium Chloride 10 ml 04/21/21 20:25 Sodium Chloride 0.9% 10 Ml Flush Syringe IV PRN PRN LINE FLUSH
[2021-04-24] MEDS: LOSARTAN 50 MG TAB PO SCH ×2 (11:16→22:02)
[2021-04-24] MEDS: FAMOTIDINE 10 MG TAB PO SCH ×2 (11:16→22:02)
[2021-04-24] MEDS: ENOXAPARIN 30 MG/0.3 ML INJ SUB-Q SCH (11:16)
[2021-04-24] MEDS: cefTRIAXone/NS 1 GM/50 ML 1 GM/50 ML BAG IV SCH (11:17)
--- NOTE | 2021-04-24 11:58 | Consultation ---
History of Present Illness - Reason for Consult Consult date: 04/24/21 - History of Present Illness 46-year-old female past medical history hypertension, anemia, diabetes, CKD presented to the hospital complaining of right-sided back pain. This began approximately 5 days prior to admission and was associated with dysuria. Also noted uncontrolled diabetes on admission. Febrile to 1-2.7 with a white count of 4.6. Currently on ceftriaxone. Blood cultures no growth so far. Urinalysis without pyuria. Decreased renal function, slightly elevated procalcitonin. Imaging personally reviewed: CT abdomen pelvis: Bilateral groundglass opacities, chronic otitis, constipation. Chest x-ray: Airspace opacity in the right lower lobe. Review of systems: Deferred to reduce to the risk of transmission of COVID-19 Past History Past Medical History: anemia, diabetes, GERD, hypertension, hyperlipidemia, renal failure Past Surgical History: , Other () Social history: no significant social history, lives with family, full code Family history: diabetes, other (Maternal) Medications and Allergies Allergies Allergy/AdvReac Type Severity Reaction Status Date / Time No Known Allergies Allergy Verified 04/13/17 07:32 Home Medications Medication Instructions Recorded Confirmed Last Taken Type AtorvaSTATin [Lipitor] 20 mg PO DAILY 04/13/17 04/21/21 1 Day Ago History ~04/20/21 Gabapentin 300 mg PO Q8HR 04/13/17 04/21/21 1 Day Ago History ~04/20/21 Insulin Glargine,Hum.rec.anlog 80 units SQ HS 04/13/17 04/21/21 2 Days Ago History [Lantus Solostar] ~04/19/21 glipiZIDE [Glucotrol] 10 mg PO BID 04/13/17 04/21/21 1 Day Ago History ~04/20/21 Losartan [Cozaar] 50 mg PO BID #60 tablet 04/15/17 04/21/21 1 Day Ago Rx ~04/20/21 Active Meds: Active Medications Acetaminophen (Acetaminophen 325 Mg Tab) 650 mg PO Q4H PRN PRN Reason: Pain MILD(1-3)/Fever >100.5/REDD Last Admin: 04/24/21 05:26 Dose: 650 mg Documented by: Hydrocodone Bitart/Acetaminophen (Hydrocodone/Acetaminophen 5-325 Mg Tab) 2 each PO Q6H PRN PRN Reason: Pain, Moderate (4-6) Last Admin: 04/21/21 23:18 Dose: 2 each Documented by: Atorvastatin Calcium (Atorvastatin 20 Mg Tab) 20 mg PO DAILY [facility] Last Admin: 04/24/21 11:16 Dose: 20 mg Documented by: Enoxaparin Sodium (Enoxaparin 30 Mg/0.3 Ml Inj) 30 mg SUB-Q QDAY [facility] Last Admin: 04/24/21 11:16 Dose: 30 mg Documented by: Famotidine (Famotidine 10 Mg Tab) 10 mg PO BID [facility] Last Admin: 04/24/21 11:16 Dose: 10 mg Documented by: Dextrose/Sodium Chloride (D5/0.45ns) 1,000 mls @ 125 mls/hr IV DIRECT [facility] Last Admin: 04/24/21 06:08 Dose: 125 mls/hr Documented by: Ceftriaxone Sodium (Rocephin/Ns 1 Gm/50 Ml) 1 gm in 50 mls @ 100 mls/hr IV Q24H [facility]; Protocol Last Admin: 04/24/21 11:17 Dose: 100 mls/hr Documented by: Insulin Glargine (Insulin Glargine 100 Units/Ml) 80 units SUB-Q QHS [facility] Last Admin: 04/23/21 22:24 Dose: Not Given Documented by: Losartan Potassium (Losartan 50 Mg Tab) 50 mg PO BID [facility] Last Admin: 04/24/21 11:16 Dose: 50 mg Documented by: Morphine Sulfate (Morphine 4 Mg/1 Ml Inj) 4 mg IV Q4H PRN PRN Reason: Pain , Severe (7-10) Ondansetron HCl (Ondansetron 4 Mg/2 Ml Inj) 4 mg IV Q8H PRN PRN Reason: Nausea And Vomiting Last Admin: 04/22/21 17:48 Dose: 4 mg Documented by: Sodium Chloride (Sodium Chloride 0.9% 10 Ml Flush Syringe) 10 ml IV BID [facility] Last Admin: 04/24/21 11:17 Dose: 10 ml Documented by: Sodium Chloride (Sodium Chloride 0.9% 10 Ml Flush Syringe) 10 ml IV PRN PRN PRN Reason: LINE FLUSH Physical Examination - Physical Exam Narrative exam: Physical exam deferred to reduce risk of transmission of COVID-19. Please refer to primary team's note. - Constitutional Vitals: Vital Signs Temp Pulse Resp BP Pulse Ox 98.9 F 113 H 18 147/89 98 04/24/21 08:22 04/24/21 03:56 04/24/21 08:22 04/24/21 08:22 04/24/21 03:56 Temperature -Last 24 Hours Temperature 98.9 F Temperature 102.5 F Temperature 102.7 F Temperature 101.9 F Temperature 99.0 F Temperature 102.0 F Results - Labs CBC & Chem 7: 04/22/21 03:59 04/24/21 05:31 Labs: Abnormal lab results 04/23/21 04/23/21 04/23/21 Range/Units 15:40 18:57 18:57 D-Dimer 380.81 H (0-234) ng/mlDDU Chloride (98-107) mmol/L BUN (7-17) mg/dL Creatinine (0.6-1.2) mg/dL Glucose (65-100) mg/dL POC Glucose 58 L (70-105) mg/dL Calcium (8.4-10.2) mg/dL Ferritin (10.0-200.0) ng/mL Lactate Dehydrogenase 400 H (91-180) units/L 04/23/21 04/23/21 04/24/21 Range/Units 18:57 22:22 05:31 D-Dimer (0-234) ng/mlDDU Chloride 108.9 H (98-107) mmol/L BUN 39 H (7-17) mg/dL Creatinine 3.6 H (0.6-1.2) mg/dL Glucose 39 L* (65-100) mg/dL POC Glucose 121 H (70-105) mg/dL Calcium 7.4 L (8.4-10.2) mg/dL Ferritin 350.8 H (10.0-200.0) ng/mL Lactate Dehydrogenase (91-180) units/L 04/24/21 04/24/21 Range/Units 06:33 08:33 D-Dimer (0-234) ng/mlDDU Chloride (98-107) mmol/L BUN (7-17) mg/dL Creatinine (0.6-1.2) mg/dL Glucose (65-100) mg/dL POC Glucose 39 L 63 L (70-105) mg/dL Calcium (8.4-10.2) mg/dL Ferritin (10.0-200.0) ng/mL Lactate Dehydrogenase (91-180) units/L Assessment and Plan Cultures: Blood culture no growth so far Covid PCR: Pending A/P: 46-year-old female past medical history hypertension, anemia, diabetes, CKD now with: #Covid PUI: Bilateral groundglass on CT, right lung pneumonia on chest x-ray. Pending PCR. Procalcitonin slightly elevated in setting of CKD. #CKD: Renally dose antibiotics #Diabetes: tight glycemic control for best outcomes. Recs: -Follow-up Covid PCR -Not a candidate for remdesivir given CKD -Continue ceftriaxone for now, okay to stop if Covid positive. -Follow blood cultures -Anticoagulation per hospital protocol Thank you for the consult, we will continue to follow. Paige Vincent MD [facility] ([facility]) O: [phone] F: [phone]
[2021-04-24] MEDS ORDERED: DEXTROSE 50% IN WATER (25GM) 50 ML SYRINGE IV ONE ×2 (17:21→17:25)
[2021-04-24] MEDS: INSULIN GLARGINE 100 UNITS/ML SUB-Q SCH (22:03)
[2021-04-25] MEDS: D5W/0.45% NACL 1,000 ML IV SCH (01:36)
[2021-04-25] MEDS: ACETAMINOPHEN 325 MG TAB PO PRN (01:39)
[2021-04-25] MEDS: DEXTROSE 10% IN WATER 1,000 ML IV SCH ×2 (02:28→23:01)
[2021-04-25] MEDS ORDERED: DEXTROSE 50% IN WATER (25GM) 50 ML SYRINGE IV ONE (02:33)
[2021-04-25 06:55] LABS: Calcium 6.2 mg/dL (8.4-10.2)
--- NOTE | 2021-04-25 07:49 | Progress Note ---
Assessment and Plan Assessment and plan: Acute on chronic kidney disease. COVID 19/Bilateral pneumonia. Acute abdominal pain. Resolved. Hyperglycemia Diabetes mellitus uncontrolled. Anemia. Hypertension. GERD. 04/23/2021. Check CT scan of the abdomen and pelvis for further evaluation of abdominal pain. Patient with a baseline creatinine of July 2020 of 2.0. Renal ultrasound shows no abnormality. Await CT scan. Nephrology following. Cont. SSRI and Accu-Cheks. 04/24/2021. CT scan of the abdomen shows nonobstructing renal stone and no hydronephrosis. However, there is report of bilateral groundglass opacities in the lung bases concerning for pneumonia. Patient does have associated fever of 102. ID consulted. Procalcitonin normal. Mildly elevated inflammatory markers with D-dimer 380, ferritin 350, LDH 400 and CRP 1.1. Patient reports having Covid vaccination approximately 3 months ago. Await Covid PCR testing. 04/25/2021. COVID PCR + 04/24. Not a candidate for remdesivir given CKD. F/U blood cx. Patient is not hypoxemic. Recheck BMP in follow-up kidney function. Patient is likely at new baseline. The patient remained stable, anticipate discharge in a.m. History Interval history: No new issues overnight Hospitalist Physical - Constitutional Vitals: Temp Pulse Resp BP Pulse Ox 100.6 F H 110 H 18 129/75 97 04/24/21 21:19 04/24/21 22:02 04/25/21 02:39 04/24/21 22:02 04/24/21 22:00 General appearance: Present: no acute distress, well-nourished - EENT Eyes: Present: PERRL, EOM intact ENT: hearing intact, clear oral mucosa, dentition normal - Neck Neck: Present: supple, normal ROM - Respiratory Respiratory effort: normal Respiratory: bilateral: CTA - Cardiovascular Rhythm: regular Heart Sounds: Present: S1 & S2. Absent: gallop, rub - Extremities Extremities: no ischemia, No edema, Full ROM - Abdominal General gastrointestinal: soft, non-tender, non-distended, normal bowel sounds - Integumentary Integumentary: Present: clear, warm, dry - Neurologic Neurologic: CNII-XII intact, moves all extremities Results - Labs CBC & Chem 7: 04/22/21 03:59 04/25/21 05:14 Labs: Laboratory Last Values WBC 4.6 K/mm3 (4.5-11.0) 04/22/21 03:59 RBC 4.75 M/mm3 (3.65-5.03) 04/22/21 03:59 Hgb 10.3 gm/dl (10.1-14.3) 04/22/21 03:59 Hct 33.7 % (30.3-42.9) 04/22/21 03:59 MCV 71 fl (79-97) L 04/22/21 03:59 MCH 22 pg (28-32) L 04/22/21 03:59 MCHC 31 % (30-34) 04/22/21 03:59 RDW 14.6 % (13.2-15.2) 04/22/21 03:59 Plt Count 140 K/mm3 (140-440) 04/22/21 03:59 Lymph % (Auto) 26.2 % (13.4-35.0) 04/22/21 03:59 [place] % (Auto) 8.6 % (0.0-7.3) H 04/22/21 03:59 Eos % (Auto) 0.2 % (0.0-4.3) 04/22/21 03:59 Baso % (Auto) 0.5 % (0.0-1.8) 04/22/21 03:59 Lymph # (Auto) 1.2 K/mm3 (1.2-5.4) 04/22/21 03:59 [place] # (Auto) 0.4 K/mm3 (0.0-0.8) 04/22/21 03:59 Eos # (Auto) 0.0 K/mm3 (0.0-0.4) 04/22/21 03:59 Baso # (Auto) 0.0 K/mm3 (0.0-0.1) 04/22/21 03:59 Seg Neutrophils % 64.5 % (40.0-70.0) 04/22/21 03:59 Seg Neutrophils # 3.0 K/mm3 (1.8-7.7) 04/22/21 03:59 D-Dimer 380.81 ng/mlDDU (0-234) H 04/23/21 18:57 VBG pH 7.267 (7.320-7.420) L 04/20/21 14:23 Sodium 136 mmol/L (137-145) L 04/25/21 05:14 Potassium 3.8 mmol/L (3.6-5.0) 04/25/21 05:14 Chloride 106.5 mmol/L (98-107) 04/25/21 05:14 Carbon Dioxide 18 mmol/L (22-30) L 04/25/21 05:14 Anion Gap 15 mmol/L 04/25/21 05:14 BUN 33 mg/dL (7-17) H 04/25/21 05:14 Creatinine 3.7 mg/dL (0.6-1.2) H 04/25/21 05:14 Estimated GFR 16 ml/min 04/25/21 05:14 BUN/Creatinine Ratio 9 % 04/25/21 05:14 Glucose 90 mg/dL (65-100) 04/25/21 05:14 POC Glucose 83 mg/dL (70-105) 04/25/21 06:04 Hemoglobin A1c 20.2 % (4-6) H 04/23/21 05:40 Calcium 6.2 mg/dL (8.4-10.2) L D 04/25/21 05:14 Phosphorus 4.00 mg/dL (2.5-4.5) 04/20/21 14:23 Magnesium 1.90 mg/dL (1.7-2.3) 04/20/21 14:23 Ferritin 350.8 ng/mL (10.0-200.0) H 04/23/21 18:57 Total Bilirubin < 0.20 mg/dL (0.1-1.2) 04/20/21 14:23 AST 34 units/L (5-40) 04/20/21 14:23 ALT 37 units/L (7-56) 04/20/21 14:23 Alkaline Phosphatase 76 units/L (35-129) 04/20/21 14:23 Lactate Dehydrogenase 400 units/L (91-180) H 04/23/21 18:57 C-Reactive Protein 1.10 mg/dL (0.00-1.30) 04/23/21 18:57 Total Protein 6.2 g/dL (6.3-8.2) L 04/20/21 14:23 Albumin 3.3 g/dL (3.9-5) L 04/20/21 14:23 Albumin/Globulin Ratio 1.1 % 04/20/21 14:23 Procalcitonin 0.29 ng/mL (<0.15) 04/23/21 18:57 HCG, Qual Negative (Negative) 04/21/21 08:42 PTH Intact 185.4 pg/mL (15-65) H 04/23/21 05:40 Urine Color Straw (Yellow) 04/21/21 09:41 Urine Turbidity Clear (Clear) 04/21/21 09:41 Urine pH 6.0 (5.0-7.0) 04/21/21 09:41 Ur Specific [place] 1.014 (1.003-1.030) 04/21/21 09:41 Urine Protein >500 mg/dL (Negative) 04/21/21 09:41 Urine Glucose (UA) >=500 mg/dL (Negative) 04/21/21 09:41 Urine Ketones Tr mg/dL (Negative) 04/21/21 09:41 Urine Blood Sm (Negative) 04/21/21 09:41 Urine Nitrite Neg (Negative) 04/21/21 09:41 Ur Reducing Substances Not Reportable 04/21/21 09:41 Urine Bilirubin Neg (Negative) 04/21/21 09:41 Urine Ictotest Not Reportable 04/21/21 09:41 Urine Urobilinogen < 2.0 mg/dL (<2.0) 04/21/21 09:41 Ur Leukocyte Esterase Neg (Negative) 04/21/21 09:41 Urine WBC (Auto) 2.0 /HPF (0.0-6.0) 04/21/21 09:41 Urine RBC (Auto) 3.0 /HPF (0.0-6.0) 04/21/21 09:41 U Epithel Cells (Auto) 3.0 /HPF (0-13.0) 04/21/21 09:41 Urine Bacteria (Auto) 1+ /HPF (Negative) 04/21/21 09:41 Urine Mucus Few /HPF 04/21/21 09:41 Coronavirus (PCR) Positive (Negative) A 04/24/21 Unknown Microbiology: Microbiology 04/23/21 13:47 Peripheral/Venous Blood Culture - Preliminary NO GROWTH AFTER 24 HOURS 04/23/21 14:01 Peripheral/Venous Blood Culture - Preliminary NO GROWTH AFTER 24 HOURS Carrera/IV: Voiding Method Toilet Active Medications - Current Medications Current Medications: Generic Name Dose Route Start Last Admin Trade Name Freq PRN Reason Stop Dose Admin Acetaminophen 650 mg 04/21/21 20:25 04/25/21 01:39 Acetaminophen 325 Mg Tab PO 650 mg Q4H PRN Administration Pain MILD(1-3)/Fever >100.5/REDD Hydrocodone Bitart/Acetaminophen 2 each 04/21/21 20:25 04/21/21 23:18 Hydrocodone/Acetaminophen 5-325 Mg Tab PO 2 each Q6H PRN Administration Pain, Moderate (4-6) Atorvastatin Calcium 20 mg 04/22/21 10:00 04/24/21 11:16 Atorvastatin 20 Mg Tab PO 20 mg DAILY SUNITHA Administration Enoxaparin Sodium 30 mg 04/21/21 21:00 04/24/21 11:16 Enoxaparin 30 Mg/0.3 Ml Inj SUB-Q 30 mg QDAY SUNITHA Administration Famotidine 10 mg 04/22/21 10:00 04/24/21 22:02 Famotidine 10 Mg Tab PO 10 mg BID SUNITHA Administration Ceftriaxone Sodium 1 gm in 50 mls @ 100 mls/hr 04/24/21 10:00 04/24/21 11:17 Rocephin/Ns 1 Gm/50 Ml IV 100 mls/hr Q24H SUNITHA Administration Protocol Dextrose 1,000 mls @ 50 mls/hr 04/25/21 03:00 04/25/21 02:28 D10w IV 50 mls/hr DIRECT SUNITHA Administration Insulin Glargine 80 units 04/21/21 22:00 04/24/21 22:03 Insulin Glargine 100 Units/Ml SUB-Q Not Given QHS SUNITHA Losartan Potassium 50 mg 04/21/21 22:00 04/24/21 22:02 Losartan 50 Mg Tab PO 50 mg BID SUNITHA Administration Morphine Sulfate 4 mg 04/21/21 20:25 Morphine 4 Mg/1 Ml Inj IV Q4H PRN Pain , Severe (7-10) Ondansetron HCl 4 mg 04/21/21 20:25 04/22/21 17:48 Ondansetron 4 Mg/2 Ml Inj IV 4 mg Q8H PRN Administration Nausea And Vomiting Sodium Chloride 10 ml 04/21/21 22:00 04/24/21 22:03 Sodium Chloride 0.9% 10 Ml Flush Syringe IV 10 ml BID SUNITHA Administration Sodium Chloride 10 ml 04/21/21 20:25 Sodium Chloride 0.9% 10 Ml Flush Syringe IV PRN PRN LINE FLUSH
[2021-04-25] MEDS: FAMOTIDINE 10 MG TAB PO SCH ×2 (10:19→22:01)
[2021-04-25] MEDS: ENOXAPARIN 30 MG/0.3 ML INJ SUB-Q SCH (10:19)
[2021-04-25] MEDS: LOSARTAN 50 MG TAB PO SCH ×2 (10:19→22:00)
[2021-04-25] MEDS: cefTRIAXone/NS 1 GM/50 ML 1 GM/50 ML BAG IV SCH (10:22)
[2021-04-25] MEDS ORDERED: CALCIUM GLUCONATE 2,000 MG in SODIUM CHLORIDE 0.9% 100 ML IV ONE (10:30)
[2021-04-25] MEDS: HYDROcodone/ACETAMINOPHEN 5-325 MG TAB PO PRN (10:37)
--- NOTE | 2021-04-25 12:23 | Progress Note ---
Assessment and Plan 1. Acute kidney injury: ALENA superimposed on CKD stage 4 in the setting of volume depletion from uncontrolled DM. Renal US negative for [place]. Urine studies ordered. Continue IV fluids. Monitor renal function. Creatinine leveled off. Likely new baseline. Avoid nephrotoxic agents. Meds dosage based on GFR. Monitor for [employer] needs. 2. FEN: Hyperchloremic metabolic acidosis, monitor. Replete Calcium. Monitor lytes and volume status. 3. Acute abdominal pain: CT showed L kidney non-obstructive stone, chronic pancreatitis and constipation. 4. DM type 2, uncontrolled: Hypoglycemia, on D10 drip. Monitor. 5. Covid PNA: CT showing bilateral lung base opacities. Followed by ID. 6. Anemia, POA: Monitor. 7. Hypertension. Follow BP. Subjective: Patient was seen and examined at the bedside. Examination: General appearance: well-developed, appears stated age, emaciated HEENT: atraumatic, THOMAS Neck: trachea midline Respiratory: bibasal rales Heart: S1S2, regular, no murmur Abdomen: soft, bowel sounds heard, NT Integumentary: no obvious rash Neurologic: AO, non-focal Ext: no edema Subjective Date of service: 04/25/21 Principal diagnosis: Hypoglycemia, back pain, acute renal failure Objective - Vital Signs Vital signs: Vital Signs - 12hr 04/25/21 04/25/21 04/25/21 01:39 02:39 10:19 Respiratory 17 18 Rate Blood Pressure 119/69 - Lab 04/22/21 03:59 04/25/21 05:14 Most recent lab results Calcium 6.2 mg/dL (8.4-10.2) L D 04/25/21 05:14 Phosphorus 4.00 mg/dL (2.5-4.5) 04/20/21 14:23 Magnesium 1.90 mg/dL (1.7-2.3) 04/20/21 14:23 Medications & Allergies - Medications Allergies/Adverse Reactions: Allergies No Known Allergies Allergy (Verified 04/13/17 07:32) Home Medications: Home Medications Medication Instructions Recorded Confirmed Last Taken Type AtorvaSTATin [Lipitor] 20 mg PO DAILY 04/13/17 04/21/21 1 Day Ago History ~04/20/21 Gabapentin 300 mg PO Q8HR 04/13/17 04/21/21 1 Day Ago History ~04/20/21 Insulin Glargine,Hum.rec.anlog 80 units SQ HS 04/13/17 04/21/21 2 Days Ago History [Lantus Solostar] ~04/19/21 glipiZIDE [Glucotrol] 10 mg PO BID 04/13/17 04/21/21 1 Day Ago History ~04/20/21 Losartan [Cozaar] 50 mg PO BID #60 tablet 04/15/17 04/21/21 1 Day Ago Rx ~04/20/21 Active Medications: Generic Name Dose Route Start Last Admin Trade Name Freq PRN Reason Stop Dose Admin Acetaminophen 650 mg 04/21/21 20:25 04/25/21 01:39 Acetaminophen 325 Mg Tab PO 650 mg Q4H PRN Administration Pain MILD(1-3)/Fever >100.5/REDD Hydrocodone Bitart/Acetaminophen 2 each 04/21/21 20:25 04/25/21 10:37 Hydrocodone/Acetaminophen 5-325 Mg Tab PO 2 each Q6H PRN Administration Pain, Moderate (4-6) Atorvastatin Calcium 20 mg 04/22/21 10:00 04/25/21 10:20 Atorvastatin 20 Mg Tab PO 20 mg DAILY SUNITHA Administration Enoxaparin Sodium 30 mg 04/21/21 21:00 04/25/21 10:19 Enoxaparin 30 Mg/0.3 Ml Inj SUB-Q 30 mg QDAY SUNITHA Administration Famotidine 10 mg 04/22/21 10:00 04/25/21 10:19 Famotidine 10 Mg Tab PO 10 mg BID SUNITHA Administration Ceftriaxone Sodium 1 gm in 50 mls @ 100 mls/hr 04/24/21 10:00 04/25/21 10:22 Rocephin/Ns 1 Gm/50 Ml IV 100 mls/hr Q24H SUNITHA Administration Protocol Dextrose 1,000 mls @ 50 mls/hr 04/25/21 03:00 04/25/21 02:28 D10w IV 50 mls/hr DIRECT SUNITHA Administration Insulin Glargine 80 units 04/21/21 22:00 04/24/21 22:03 Insulin Glargine 100 Units/Ml SUB-Q Not Given QHS SUNITHA Losartan Potassium 50 mg 04/21/21 22:00 04/25/21 10:19 Losartan 50 Mg Tab PO 50 mg BID SUNITHA Administration Morphine Sulfate 4 mg 04/21/21 20:25 Morphine 4 Mg/1 Ml Inj IV Q4H PRN Pain , Severe (7-10) Ondansetron HCl 4 mg 04/21/21 20:25 04/22/21 17:48 Ondansetron 4 Mg/2 Ml Inj IV 4 mg Q8H PRN Administration Nausea And Vomiting Sodium Chloride 10 ml 04/21/21 22:00 04/25/21 10:20 Sodium Chloride 0.9% 10 Ml Flush Syringe IV 10 ml BID SUNITHA Administration Sodium Chloride 10 ml 04/21/21 20:25 Sodium Chloride 0.9% 10 Ml Flush Syringe IV PRN PRN LINE FLUSH
[2021-04-25] MEDS: ONDANSETRON 4 MG/2 ML INJ IV PRN (13:20)
[2021-04-25] MEDS: INSULIN GLARGINE 100 UNITS/ML SUB-Q SCH (22:01)
--- NOTE | 2021-04-26 08:22 | Discharge Summary ---
Providers - Providers Date of Admission: 04/23/21 16:40 Date of discharge: 04/26/21 Attending physician: HYUN WALSH 04/22/21 12:12 Consult to Physician [CONS] Routine Comment: Consulting Provider: MAKENZIE CHACON Physician Instructions: Reason For Exam: alvin on cki 04/24/21 07:40 Consult to Physician [CONS] Routine Comment: Consulting Provider: MISTY LAO Physician Instructions: Reason For Exam: fever, naida PNA Primary care physician: PHLEBOTOMIST LAB ASSISTANT Hospitalization Condition: Stable Hospital course: 46-year-old female past medical history hypertension, anemia, diabetes, CKD presented to the hospital complaining of right-sided back pain. Her symptoms began approximately 5 days prior to admission and was associated with dysuria. The patient also noted to have uncontrolled diabetes on admission. The patient was treated with IV antibiotics of ceftriaxone. Blood cultures no growth. Urinalysis without pyuria. Decreased renal function, slightly elevated procalcitonin. CT abdomen pelvis: Bilateral groundglass opacities, chronic otitis, constipation. Chest x-ray: Airspace opacity in the right lower lobe. The patient was admitted with diagnosis of acute kidney injury superimposed on chronic kidney disease. Baseline creatinine from previous hospitalization was approximately 2.0. Patient also had admission diagnosis of chronic pancreatitis and hyperglycemia/uncontrolled diabetes mellitus type 2. CT scan mentioned above was obtained later in the hospitalization and thus added diagnosis of b ilateral pneumonia. Patient was noted to have Covid PCR positive on 04/24/2021. Patient reports having both doses of the vaccine. Patient had no evidence of hypoxia during hospitalization and thus was not treated with dexamethasone or remdesivir. Remdesivir also was excluded given the CKD. Nephrology and ID were consulted during hospitalization. Nephrology felt patient had reached a new baseline for creatinine of likely 3.5 which remained stable throughout hospitalization. Inflammatory markers were only mildly elevated with ferritin of 350, LDH 400 and D-dimer 380. The patient is felt to receive maximal hospital benefit and is to discharge home under Covid isolation protocols. Dedicated discharge time 35 minutes. Disposition: DC-01 TO HOME OR SELFCARE Final Discharge Diagnosis (Prints w/discharge instructions): acute kidney injury superimposed on chronic kidney disease, COVID 19 PNA Core Measure Documentation - Palliative Care Palliative Care/ Comfort Measures: Not Applicable - Core Measures Any of the following diagnoses?: none Exam - Constitutional Vitals: Temp Pulse Resp BP Pulse Ox 99.1 F 104 H 18 144/82 96 04/25/21 20:37 04/25/21 22:00 04/25/21 22:00 04/25/21 22:00 04/25/21 22:00 General appearance: Present: no acute distress, well-nourished - EENT Eyes: Present: PERRL ENT: hearing intact, clear oral mucosa - Neck Neck: Present: supple, normal ROM - Respiratory Respiratory effort: normal Respiratory: bilateral: CTA - Cardiovascular Heart Sounds: Present: S1 & S2. Absent: rub, click - Extremities Extremities: pulses symmetrical, No edema Peripheral Pulses: within normal limits - Abdominal General gastrointestinal: Present: soft, non-tender, non-distended, normal bowel sounds Female genitourinary: Present: normal - Integumentary Integumentary: Present: clear, warm, dry - Musculoskeletal Musculoskeletal: gait normal, strength equal bilaterally - Psychiatric Psychiatric: appropriate mood/affect, intact judgment & insight - Neurologic Neurologic: CNII-XII intact, moves all extremities Plan Activity: advance as tolerated Weight Bearing Status: Weight Bear as Tolerated Diet: renal Follow up with: PRIMARY CAREMD [Primary Care Provider] - 3-5 Days MAKENZIE CHACON MD [Staff Physician] - 7 Days MISTY LAO MD [Staff Physician] - 7 Days Prescriptions: Losartan [Cozaar] 50 mg PO BID #60 tablet Gabapentin 300 mg PO Q8HR #90 cap AtorvaSTATin [Lipitor] 20 mg PO DAILY #30
[2021-04-26 08:31] LABS: Basophils % (Auto) 0.4 % (0.0-1.8); Eosinophils % (Auto) 0.1 % (0.0-4.3); Hematocrit 27.3 % (30.3-42.9); Hemoglobin 8.4 gm/dl (10.1-14.3); Lymphocytes # (Auto) 1.2 K/mm3 (1.2-5.4); Lymphocytes % (Auto) 16.3 % (13.4-35.0); Mean Corpuscular HGB Conc 31 % (30-34); Mean Corpuscular Volume 71 fl (79-97); Monocytes # (Auto) 0.6 K/mm3 (0.0-0.8); Monocytes % (Auto) 7.5 % (0.0-7.3); Platelet Count 168 K/mm3 (140-440); Red Blood Count 3.86 M/mm3 (3.65-5.03); Red Cell Distribution Width 15.1 % (13.2-15.2)
[2021-04-26 08:47] LABS: Calcium 7.6 mg/dL (8.4-10.2)
[2021-04-26] MEDS: ENOXAPARIN 30 MG/0.3 ML INJ SUB-Q SCH (09:48)
[2021-04-26] MEDS: FAMOTIDINE 10 MG TAB PO SCH (09:48)
[2021-04-26] MEDS: LOSARTAN 50 MG TAB PO SCH (09:58)
[2021-04-26 09:59] VITALS: BP 138/76
[2021-04-26] MEDS: ACETAMINOPHEN 325 MG TAB PO PRN (10:15)
[2021-04-26] MEDS ORDERED: CALCIUM GLUCONATE 2,000 MG in SODIUM CHLORIDE 0.9% 100 ML IV ONE (11:50)
--- NOTE | 2021-04-26 11:51 | Progress Note ---
Assessment and Plan 1. Acute kidney injury: ALENA superimposed on CKD stage 4 in the setting of volume depletion from uncontrolled DM. Renal US negative for [place]. Urine studies ordered. Continue IV fluids. Monitor renal function. Creatinine leveled off. Likely new baseline. Avoid nephrotoxic agents. Meds dosage based on GFR. 2. FEN: Hyperchloremic metabolic acidosis, Sod bicarb, monitor. Replete Calcium. Monitor lytes and volume status. 3. Acute abdominal pain: CT showed L kidney non-obstructive stone, chronic pancreatitis and constipation. 4. DM type 2, uncontrolled: Hypoglycemia, on D10 drip. Monitor. 5. Covid PNA: CT showing bilateral lung base opacities. Followed by ID. On [place] O2. 6. Anemia, POA: Monitor. 7. Hypertension. Follow BP. Subjective: Patient was seen and examined at the bedside. No new complaint. Examination: General appearance: well-developed, appears stated age, emaciated HEENT: atraumatic, THOMAS Neck: trachea midline Respiratory: bibasal rales Heart: S1S2, regular, no murmur Abdomen: soft, bowel sounds heard, NT Integumentary: no obvious rash Neurologic: AO, non-focal Ext: no edema Subjective Date of service: 04/26/21 Principal diagnosis: Hypoglycemia, back pain, acute renal failure Objective - Vital Signs Vital signs: Vital Signs - 12hr 04/26/21 09:58 Blood Pressure 138/76 - Lab 04/26/21 07:09 04/26/21 07:09 Most recent lab results Calcium 7.6 mg/dL (8.4-10.2) L D 04/26/21 07:09 Phosphorus 4.00 mg/dL (2.5-4.5) 04/20/21 14:23 Magnesium 1.90 mg/dL (1.7-2.3) 04/20/21 14:23 Medications & Allergies - Medications Allergies/Adverse Reactions: Allergies No Known Allergies Allergy (Verified 04/13/17 07:32) Home Medications: Home Medications Medication Instructions Recorded Confirmed Last Taken Type Insulin Glargine,Hum.rec.anlog 80 units SQ HS 04/13/17 04/21/21 2 Days Ago History [Lantus Solostar] ~04/19/21 AtorvaSTATin [Lipitor] 20 mg PO DAILY #30 04/26/21 Unknown Rx Gabapentin 300 mg PO Q8HR #90 cap 04/26/21 Unknown Rx Losartan [Cozaar] 50 mg PO BID #60 tablet 04/26/21 Unknown Rx Active Medications: Generic Name Dose Route Start Last Admin Trade Name Freq PRN Reason Stop Dose Admin Acetaminophen 650 mg 04/21/21 20:25 04/26/21 10:15 Acetaminophen 325 Mg Tab PO 650 mg Q4H PRN Administration Pain MILD(1-3)/Fever >100.5/REDD Hydrocodone Bitart/Acetaminophen 2 each 04/21/21 20:25 04/25/21 10:37 Hydrocodone/Acetaminophen 5-325 Mg Tab PO 2 each Q6H PRN Administration Pain, Moderate (4-6) Atorvastatin Calcium 20 mg 04/22/21 10:00 04/26/21 09:48 Atorvastatin 20 Mg Tab PO 20 mg DAILY SUNITHA Administration Enoxaparin Sodium 30 mg 04/21/21 21:00 04/26/21 09:48 Enoxaparin 30 Mg/0.3 Ml Inj SUB-Q 30 mg QDAY SUNITHA Administration Famotidine 10 mg 04/22/21 10:00 04/26/21 09:48 Famotidine 10 Mg Tab PO 10 mg BID SUNITHA Administration Dextrose 1,000 mls @ 50 mls/hr 04/25/21 03:00 04/25/21 23:01 D10w IV 50 mls/hr DIRECT SUNITHA Administration Calcium Gluconate 2,000 mg/ 120 mls @ 660 mls/hr 04/26/21 11:50 Sodium Chloride IV 04/26/21 12:00 ONCE ONE Insulin Glargine 80 units 04/21/21 22:00 04/25/21 22:01 Insulin Glargine 100 Units/Ml SUB-Q Not Given QHS SUNITHA Losartan Potassium 50 mg 04/21/21 22:00 04/26/21 09:58 Losartan 50 Mg Tab PO 50 mg BID SUNITHA Administration Morphine Sulfate 4 mg 04/21/21 20:25 Morphine 4 Mg/1 Ml Inj IV Q4H PRN Pain , Severe (7-10) Ondansetron HCl 4 mg 04/21/21 20:25 04/25/21 13:20 Ondansetron 4 Mg/2 Ml Inj IV 4 mg Q8H PRN Administration Nausea And Vomiting Sodium Chloride 10 ml 04/21/21 22:00 04/26/21 09:59 Sodium Chloride 0.9% 10 Ml Flush Syringe IV 10 ml BID SUNITHA Administration Sodium Chloride 10 ml 04/21/21 20:25 Sodium Chloride 0.9% 10 Ml Flush Syringe IV PRN PRN LINE FLUSH
[2021-04-26] MEDS ORDERED: SODIUM BICARBONATE 650 MG TAB PO SCH (14:00)
[2021-04-26] MEDS: HYDROcodone/ACETAMINOPHEN 5-325 MG TAB PO PRN (17:38)
== END 2021-04-26 20:30 | disposition home or self-care (01) | DRG 177 ==
LOC: ED 11:42 → 3A 04-21 09:56 → 4A 04-22 18:09 → OBSVTOIN 04-23 16:40 → 3A 04-24 17:43
PROVIDERS: ADMIT Internal Medicine; ATTEND Hospitalist
DX: U07.1 COVID-19 (principal); J12.82 Pneumonia due to coronavirus disease 2019; N17.9 Acute kidney failure, unspecified; K86.1 Other chronic pancreatitis; N18.4 Chronic kidney disease, stage 4 (severe); M54.5 Low back pain; D64.89 Other specified anemias; I12.9 Hypertensive chronic kidney disease with stage 1 through stage 4 chronic kidney disease, or unspecified chronic kidney disease; E11.22 Type 2 diabetes mellitus with diabetic chronic kidney disease; E78.00 Pure hypercholesterolemia, unspecified; Z98.51 Tubal ligation status; Z86.73 Personal history of transient ischemic attack (TIA), and cerebral infarction without residual deficits; Z79.4 Long term (current) use of insulin; Z79.899 Other long term (current) drug therapy; E86.0 Dehydration; K21.9 Gastro-esophageal reflux disease without esophagitis; D64.9 Anemia, unspecified; E11.65 Type 2 diabetes mellitus with hyperglycemia; E11.319 Type 2 diabetes mellitus with unspecified diabetic retinopathy without macular edema; Z91.19 Patient's noncompliance with other medical treatment and regimen; Z83.3 Family history of diabetes mellitus; E78.5 Hyperlipidemia, unspecified
CPT/HCPCS: 36415; 71045; 72131; 74176; 76770; 80048; 80053; 81001; 82728; 82805; 82962; 83036; 83615; 83735; 83970; 84100; 84145; 84703; 85025; 85379; 86140; 87040; 94640; 96374; G0378; A9270-GY; J0610; J0696; J1650; J1815; J2405; J7030; J7120; U0003

== ENCOUNTER 2021-11-26 12:29 | Outpatient (CLI) | payer BC ==
--- NOTE | 2021-11-26 15:01 | Cat Scan Report ---
CTA CHEST WITH CONTRAST INDICATION : OMNI 350 100 ML. Chest pain, shortness of breath TECHNIQUE: Axial imaging performed through the chest, with contrast bolus timing set to maximize opa cification of the pulmonary arteries. Sagittal and coronal reformatted images. 3-plane MIP reformatte d images were obtained. All CT scans at this location are performed using CT dose reduction for ALAR A by means of automated exposure control. Omnipaque 350 100 mL of intravenous contrast administered. COMPARISON: None FINDINGS: Bolus: Contrast bolus timing is adequate. PTE: No filling defect is present to suggest PTE. Mediastinum: There is mild cardiomegaly. No pericardial effusion. Mild coronary artery calcification s. The thoracic aorta and great vessels are unremarkable. No pathologic mediastinal adenopathy. Lungs: Hazy bilateral groundglass opacities are identified most likely representing pulmonary edema. Moderate to large bilateral layering pleural effusions are present. There is compressive atelectasis in both lower lung zones. No evidence for pulmonary mass or interstitial disease. Bones: No significant abnormality. Upper abdomen: Limited imaging of the upper abdomen shows nothing acute. IMPRESSION: No pulmonary embolus is identified. Findings compatible with moderate to severe CHF. Signer Name: Osmar Barillas Jr, MD Signed: 11/26/2021 2:56 PM Workstation Name: [id number]
== END 2021-11-26 12:30 | disposition home or self-care (01) ==
LOC: CT 12:29
PROVIDERS: ATTEND Internal Medicine Cardiovascular Disease
DX: J98.11 Atelectasis (principal); R79.89 Other specified abnormal findings of blood chemistry; I51.7 Cardiomegaly; J90 Pleural effusion, not elsewhere classified; I25.10 Atherosclerotic heart disease of native coronary artery without angina pectoris
CPT/HCPCS: 36415; 71275; 82565; 84520; Q9967